=== PATIENT | female | born 1950 | race Caucasian/White ===

== ENCOUNTER 2017-11-18 09:59 | Observation (INO) | payer MEDICARE, OTHER ==
[2017-11-18] MEDS ORDERED: SODIUM CHLORIDE 0.9% 1,000 ML IV STA (10:40)
[2017-11-18] MEDS ORDERED: SODIUM CHLORIDE 0.9% 2,000 ML IV STA (10:40)
[2017-11-18] MEDS ORDERED: ONDANSETRON 4 MG/2 ML VIAL IVP STA (10:40)
--- NOTE | 2017-11-18 11:18 | ED ---
General Adult HPI <Keven Bagley J - Last Filed: 11/18/17 15:13> - General Source: patient, RN notes reviewed, old records reviewed Mode of arrival: wheelchair Limitations: no limitations <Velvet Saeed - Last Filed: 11/18/17 15:30> - General Chief complaint: Nausea/Vomiting/Diarrhea Stated complaint: Dx C-diff Time Seen by Provider: 11/18/17 10:21 - History of Present Illness Initial comments: Is a 67-year-old female presents emergency Department chief complaint of increased weakness. She is diagnosed with C. diff diarrhea and was recently admitted and discharged from [facility]. She reports that she is too weak and is unable to stand. She's had multiple episodes of severe diarrhea. Patient relates that she felt that she should not have been discharged from that hospital that time. She is very upset with her physician Dr. langford. Patient states that she's had some diffuse abdominal pain related with the diarrhea. No vomiting. No fevers or chills. (Velvet Saeed) - Related Data Home Medications Medication Instructions Recorded Confirmed Cholestyramine (with Sugar) 4 gm PO BID PRN 11/18/17 11/18/17 [Cholestyramine Packet] Escitalopram [Lexapro] 10 mg PO DAILY 11/18/17 11/18/17 LORazepam [Ativan] 1 mg PO DAILY PRN 11/18/17 11/18/17 Lisinopril [Zestril] 20 mg PO DAILY 11/18/17 11/18/17 Morphine Sulfate ER [Ms Contin 60 mg PO Q12HR 11/18/17 11/18/17 60Mg] Morphine Sulfate Ir [Msir] 15 mg PO BID 11/18/17 11/18/17 Multivitamins, Thera [Multivitamin 1 tab PO DAILY 11/18/17 11/18/17 (formulary)] Omeprazole 20 mg PO DAILY 11/18/17 11/18/17 Ondansetron [Zofran] 4 mg PO Q8HR PRN 11/18/17 11/18/17 Vancomycin HCl [Vancocin HCl] 250 mg PO Q6H 11/18/17 11/18/17 clonazePAM [KlonoPIN] 1 mg PO HS 11/18/17 11/18/17 Allergies Allergy/AdvReac Type Severity Reaction Status Date / Time Antifungal - Imidazole AdvReac Unknown Verified 11/18/17 10:53 erythromycin base AdvReac Unknown Verified 11/18/17 10:53 peanut AdvReac Unknown Verified 11/18/17 10:53 tomato AdvReac Unknown Verified 11/18/17 10:53 RASBERRIES AdvReac Unknown Uncoded 11/18/17 10:53 Review of Systems ROS Other: All systems not noted in ROS Statement are negative. <Keven Bagley - Last Filed: 11/18/17 15:13> ROS Other: All systems not noted in ROS Statement are negative. <DarlinVelvet - Last Filed: 11/18/17 15:30> ROS Statement: Those systems with pertinent positive or pertinent negative responses have been documented in the HPI. Past Medical History Past Medical History: Hyperlipidemia, Hypertension Additional Past Medical History / Comment(s): Stage III kidney disease, low potassium r/t diarrhea History of Any Multi-Drug Resistant Organisms: C-DIFF Date of last positivie culture/infection: C-Diff in November 2017 Past Surgical History: Back Surgery, Hysterectomy, Orthopedic Surgery, Tonsillectomy Past Psychological History: Anxiety Smoking Status: Current some day smoker Past Alcohol Use History: None Reported Past Drug Use History: Marijuana <Velvet Saeed - Last Filed: 11/18/17 15:30> General Exam <Keven Bagley - Last Filed: 11/18/17 15:13> Limitations: no limitations General appearance: alert, in no apparent distress Head exam: Present: atraumatic, normocephalic, normal inspection Eye exam: Present: normal appearance, PERRL, EOMI. Absent: scleral icterus, conjunctival injection, periorbital swelling ENT exam: Present: normal exam, mucous membranes moist Neck exam: Present: normal inspection. Absent: tenderness, meningismus, lymphadenopathy Respiratory exam: Present: normal lung sounds bilaterally. Absent: respiratory distress, wheezes, rales, rhonchi, stridor Cardiovascular Exam: Present: regular rate, normal rhythm, normal heart sounds. Absent: systolic murmur, diastolic murmur, rubs, gallop, clicks GI/Abdominal exam: Present: soft, tenderness (Left upper quadrant tenderness.), normal bowel sounds. Absent: distended, guarding, rebound, rigid Extremities exam: Present: normal inspection, full ROM, normal capillary refill. Absent: tenderness, pedal edema, joint swelling, calf tenderness Back exam: Present: normal inspection Neurological exam: Present: alert, oriented X3, CN II-XII intact Psychiatric exam: Present: normal affect, normal mood Skin exam: Present: warm, dry, intact, normal color. Absent: rash <Hailee Saeedily - Last Filed: 11/18/17 15:30> - General Exam Comments Initial Comments: This is 67-year-old female. Very weak. It took 2 people to get her from the wheelchair to the bed. (Velvet Saeed) Vital Signs 11/18/17 10:00 Temperature 98.2 F Pulse Rate 101 H Respiratory 20 Rate Blood Pressure 160/80 O2 Sat by Pulse 98 Oximetry Medical Decision Making - Lab Data Result diagrams: 11/18/17 11:55 11/18/17 11:55 <Keven Bagley - Last Filed: 11/18/17 15:13> - Lab Data Result diagrams: 11/18/17 11:55 11/18/17 11:55 - Radiology Data Radiology results: report reviewed <Velvet Saeed - Last Filed: 11/18/17 15:30> - Medical Decision Making The patient was seen and examined. All diagnostics were reviewed. The case is discussed with Dr. Umaña from internal medicine and he is agreeable to admission. The case is discussed with PA and I agree with the findings as documented. (Keven Bagley) 67-year-old female recently diagnosed with C. diff diarrhea. She's been maintained on oral vancomycin. She reports she's not getting any better and is severely weak and dehydrated. Patient relates that she is unable to ambulate due to the weakness in her legs and just severe diarrhea. Patient denies any known fever or chills. Does complain of some left upper quadrant tenderness. She is given 2 L of fluids and lab work was obtained. Patient has had multiple episodes of diarrhea. Patient C. diff is actually negative in the emergency department. However clinically patient has had severe green foul-smelling diarrhea consistent with C. diff. Case discussed with by Dr. Bagley. (Velvet Saeed) - Lab Data Lab Results 11/18/17 11/18/17 11/18/17 Range/Units 11:55 11:55 11:55 WBC 11.7 H (3.8-10.6) k/uL RBC 5.29 (3.80-5.40) m/uL Hgb 14.9 (11.4-16.0) gm/dL Hct 45.3 (34.0-46.0) % MCV 85.6 (80.0-100.0) fL MCH 28.1 (25.0-35.0) pg MCHC 32.8 (31.0-37.0) g/dL RDW 14.3 (11.5-15.5) % Plt Count 289 (150-450) k/uL Neutrophils % 74 % Lymphocytes % 18 % Monocytes % 5 % Eosinophils % 1 % Basophils % 0 % Neutrophils # 8.6 H (1.3-7.7) k/uL Lymphocytes # 2.1 (1.0-4.8) k/uL Monocytes # 0.5 (0-1.0) k/uL Eosinophils # 0.2 (0-0.7) k/uL Basophils # 0.1 (0-0.2) k/uL Sodium 140 (137-145) mmol/L Potassium 4.2 (3.5-5.1) mmol/L Chloride 101 (98-107) mmol/L Carbon Dioxide 24 (22-30) mmol/L Anion Gap 15 mmol/L BUN 5 L (7-17) mg/dL Creatinine 0.90 (0.52-1.04) mg/dL Est GFR (CKD-EPI)AfAm 77 (>60 ml/min/1.73 sqM) Est GFR (CKD-EPI)NonAf 67 (>60 ml/min/1.73 sqM) Glucose 89 (74-99) mg/dL Plasma Lactic Acid Eriberto 0.8 (0.7-2.0) mmol/L Calcium 9.9 (8.4-10.2) mg/dL Total Bilirubin 0.6 (0.2-1.3) mg/dL AST 25 (14-36) U/L ALT 35 (9-52) U/L Alkaline Phosphatase 74 (38-126) U/L Total Protein 6.2 L (6.3-8.2) g/dL Albumin 3.7 (3.5-5.0) g/dL Amylase 31 (30-110) U/L Lipase 57 (23-300) U/L Urine Color Urine Appearance (Clear) Urine pH (5.0-8.0) Ur Specific Towner (1.001-1.035) Urine Protein (Negative) Urine Glucose (UA) (Negative) Urine Ketones (Negative) Urine Blood (Negative) Urine Nitrite (Negative) Urine Bilirubin (Negative) Urine Urobilinogen (<2.0) mg/dL Ur Leukocyte Esterase (Negative) C. difficile (EIA) Intrp (Negative) 11/18/17 11/18/17 Range/Units 11:55 12:15 WBC (3.8-10.6) k/uL RBC (3.80-5.40) m/uL Hgb (11.4-16.0) gm/dL Hct (34.0-46.0) % MCV (80.0-100.0) fL MCH (25.0-35.0) pg MCHC (31.0-37.0) g/dL RDW (11.5-15.5) % Plt Count (150-450) k/uL Neutrophils % % Lymphocytes % % Monocytes % % Eosinophils % % Basophils % % Neutrophils # (1.3-7.7) k/uL Lymphocytes # (1.0-4.8) k/uL Monocytes # (0-1.0) k/uL Eosinophils # (0-0.7) k/uL Basophils # (0-0.2) k/uL Sodium (137-145) mmol/L Potassium (3.5-5.1) mmol/L Chloride (98-107) mmol/L Carbon Dioxide (22-30) mmol/L Anion Gap mmol/L BUN (7-17) mg/dL Creatinine (0.52-1.04) mg/dL Est GFR (CKD-EPI)AfAm (>60 ml/min/1.73 sqM) Est GFR (CKD-EPI)NonAf (>60 ml/min/1.73 sqM) Glucose (74-99) mg/dL Plasma Lactic Acid Eriberto (0.7-2.0) mmol/L Calcium (8.4-10.2) mg/dL Total Bilirubin (0.2-1.3) mg/dL AST (14-36) U/L ALT (9-52) U/L Alkaline Phosphatase (38-126) U/L Total Protein (6.3-8.2) g/dL Albumin (3.5-5.0) g/dL Amylase (30-110) U/L Lipase (23-300) U/L Urine Color Light Yellow Urine Appearance Clear (Clear) Urine pH 6.0 (5.0-8.0) Ur Specific Towner 1.002 (1.001-1.035) Urine Protein Trace H (Negative) Urine Glucose (UA) Negative (Negative) Urine Ketones 2+ H (Negative) Urine Blood Negative (Negative) Urine Nitrite Negative (Negative) Urine Bilirubin Negative (Negative) Urine Urobilinogen <2.0 (<2.0) mg/dL Ur Leukocyte Esterase Negative (Negative) C. difficile (EIA) Intrp Negative (Negative) - Radiology Data KUB is negative for any acute process. (Velvet Saeed) Disposition <Keven Bagley - Last Filed: 11/18/17 15:13> Time of Disposition: 14:27 <Velvet Saeed - Last Filed: 11/18/17 15:30> Clinical Impression: Intractable diarrhea, Clostridium difficile colitis Disposition: ADMITTED IP TO THIS HOSP Condition: Stable Referrals: Alo Robins MD [Primary Care Provider] - 1-2 days
[2017-11-18 12:09] LABS: Basophils # (A) 0.1 k/uL (0-0.2); Basophils % (A) 0 %; Eosinophils # (A) 0.2 k/uL (0-0.7); Eosinophils % (A) 1 %; HCT 45.3 % (34.0-46.0); HGB 14.9 gm/dL (11.4-16.0); Lymphocytes # (A) 2.1 k/uL (1.0-4.8); Lymphocytes % (A) 18 %; MCH 28.1 pg (25.0-35.0); MCHC 32.8 g/dL (31.0-37.0); MCV 85.6 fL (80.0-100.0); Mean Platelet Volume 8.1; Monocytes # (A) 0.5 k/uL (0-1.0); Monocytes % (A) 5 %; Neutrophils # (A) 8.6 k/uL (1.3-7.7); Neutrophils % (A) 74 %; Platelet Count 289 k/uL (150-450); RBC 5.29 m/uL (3.80-5.40); RDW 14.3 % (11.5-15.5); WBC 11.7 k/uL (3.8-10.6)
[2017-11-18 12:17] LABS: Albumin 3.7 g/dL (3.5-5.0); Calcium 9.9 mg/dL (8.4-10.2); Potassium 4.2 mmol/L (3.5-5.1); Total Bilirubin 0.6 mg/dL (0.2-1.3); Total Protein 6.2 g/dL (6.3-8.2)
[2017-11-18 12:18] LABS: Appearance,Urine Clear (Clear); Bilirubin,Urine Negative (Negative); Blood,Urine Negative (Negative); Color,Urine Light Yellow; Glucose,Urine (UA) Negative (Negative); Ketones,Urine 2+ (Negative); Leukocyte Esterase,Urine Negative (Negative); Nitrite,Urine Negative (Negative); Protein,Urine Trace (Negative); Specific Gravity,Urine 1.002 (1.001-1.035); Urobilinogen,Urine <2.0 mg/dL (<2.0)
--- NOTE | 2017-11-18 12:33 | XR ---
EXAMINATION TYPE: XR KUB DATE OF EXAM: 11/18/2017 COMPARISON: NONE HISTORY: Pain TECHNIQUE: Single supine KUB image of the abdomen is obtained FINDINGS: Small bowel demonstrates no evidence for dilatation or air fluid levels. Gas and fecal material is seen in non-distended colon. No convincing evidence for pneumoperitoneum. No unusual calcifications. The lung bases are clear. The osseous structures are intact. IMPRESSION: 1. Overall nonobstructive bowel gas pattern.
[2017-11-18] MEDS ORDERED: MORPHINE SULFATE 4MG/4ML SYRG IVP STA (13:58)
[2017-11-18] MEDS ORDERED: NALOXONE 0.4 MG/ML 1 ML VIAL IV PRN (15:30)
[2017-11-18] MEDS ORDERED: MORPHINE SULFATE 4MG/4ML SYRG IV PRN (15:30)
[2017-11-18] MEDS ORDERED: KETOROLAC 30 MG/ML 1 ML VIAL IVP PRN (15:30)
[2017-11-18] MEDS ORDERED: ONDANSETRON 4 MG/2 ML VIAL IVP PRN (15:30)
[2017-11-18] MEDS ORDERED: LORazepam 1 MG TAB PO PRN (17:24)
[2017-11-18] MEDS ORDERED: CHOLESTYRAMINE (WITH SUGAR) 4 GM PACKET PO PRN (17:24)
[2017-11-18] MEDS: SODIUM CHLORIDE 0.9% 1,000 ML IV SCH ×2 (18:12→21:29)
[2017-11-18] MEDS: CHERRY FLAVOR 60 ML BOTTLE PO SCH ×2 (18:50→23:24)
[2017-11-18] MEDS: VANCOMYCIN ORAL SOLUTION 250 MG/5 ML BOTTLE PO SCH ×2 (18:50→23:23)
[2017-11-18] MEDS: MORPHINE SULFATE ER 60 MG TABLET PO SCH (21:23)
[2017-11-18] MEDS: clonazePAM 1 MG TAB PO SCH (21:23)
[2017-11-18] MEDS: MORPHINE SULFATE IR 15 MG TABLET PO SCH (21:28)
--- NOTE | 2017-11-19 01:20 | P.HPIM ---
History of Present Illness H&P Date: 11/18/17 Chief Complaint: Weakness and diarrhea Patient is a 67 old female with a known history of hypertension, hyperlipidemia , CK stage III and recently diagnosed C. diff infection at [facility] came to ER with complaints of increasing weakness and diarrhea. Patient was diagnosed with C. diff colitis about 5 days ago and was discharged home. Patient continues to be weak and having diarrhea at home and unable to tolerate oral diet as well. Came back to the hospital with generalized weakness. Patient has been taking vancomycin oral at home. Patient was also having some diffuse abdominal pain. No fever no chills. Patient does have nausea. No vomiting. C. diff toxin is negative here Stool occult blood is negative. Stool culture was sent. Review of Systems Constitutional: Patient denies any fever or chills . No generalized weakness or weight loss. Abdomen: Patient does have abdominal discomfort and nausea and diarrhea. Cardiovascular: Patient denies any chest pain or short of breath no palpitations. Respiratory: patient denied any cough is from production. No shortness of breath Neurologic: Patient denied any numbness or tingling headache. Musculoskeletal: Patient denies any complaints of joint swelling or deformity. Skin: Negative Psychiatric: Negative Endocrine: No heat or cold intolerance. No recent weight gain. Genitourinary: No dysuria or hematuria. All other 14 point ROS negative except the above Past Medical History Past Medical History: Hyperlipidemia, Hypertension Additional Past Medical History / Comment(s): Stage III kidney disease, low potassium r/t diarrhea History of Any Multi-Drug Resistant Organisms: C-DIFF Date of last positivie culture/infection: C-Diff in November 2017 MDRO Source:: stool Past Surgical History: Back Surgery, Hysterectomy, Orthopedic Surgery, Tonsillectomy Past Psychological History: Anxiety Additional Psychological History / Comment(s): trouble sleeping Smoking Status: Former smoker Past Alcohol Use History: None Reported Past Drug Use History: Marijuana Additional Drug Use History / Comment(s): pt has current medical marijuana card "I don't smoke. I do the gummy edibles" - Past Family History Father Family Medical History: Cancer Additional Family Medical History / Comment(s): from lymphoma Medications and Allergies Home Medications Medication Instructions Recorded Confirmed Type Cholestyramine (with Sugar) 4 gm PO BID PRN 11/18/17 11/18/17 History [Cholestyramine Packet] Escitalopram [Lexapro] 10 mg PO DAILY 11/18/17 11/18/17 History LORazepam [Ativan] 1 mg PO DAILY PRN 11/18/17 11/18/17 History Lisinopril [Zestril] 20 mg PO DAILY 11/18/17 11/18/17 History Morphine Sulfate ER [Ms Contin 60 mg PO Q12HR 11/18/17 11/18/17 History 60Mg] Morphine Sulfate Ir [Msir] 15 mg PO BID 11/18/17 11/18/17 History Multivitamins, Thera [Multivitamin 1 tab PO DAILY 11/18/17 11/18/17 History (formulary)] Omeprazole 20 mg PO DAILY 11/18/17 11/18/17 History Ondansetron [Zofran] 4 mg PO Q8HR PRN 11/18/17 11/18/17 History Vancomycin HCl [Vancocin HCl] 250 mg PO Q6H 11/18/17 11/18/17 History clonazePAM [KlonoPIN] 1 mg PO HS 11/18/17 11/18/17 History Allergies Allergy/AdvReac Type Severity Reaction Status Date / Time Antifungal - Imidazole AdvReac Rash/Hives Verified 11/18/17 17:07 erythromycin base AdvReac Rash/Hives Verified 11/18/17 17:07 peanut AdvReac Anaphylaxis Verified 11/18/17 17:07 tomato AdvReac Anaphylaxis Verified 11/18/17 17:07 tuna oil AdvReac Rash/Hives Verified 11/18/17 17:07 RASBERRIES AdvReac Anaphylaxis Uncoded 11/18/17 17:07 Physical Exam Vitals: Vital Signs Temp Pulse Pulse Resp BP BP Pulse Ox 11/18/17 16:19 70 18 95 11/18/17 15:54 98.2 F 64 16 159/75 93 L 11/18/17 15:33 96.3 F L 67 12 139/69 91 L 11/18/17 10:00 98.2 F 101 H 20 160/80 98 Intake and Output 11/18/17 11/18/17 11/18/17 06:59 14:59 22:59 Other: Weight 68.039 kg PHYSICAL EXAMINATION: Patient is lying in the bed comfortably, no acute distress, awake alert and oriented. Anxious. HEENT: Normocephalic. Neck is supple. Pupils reactive. Nostrils clear. Oral cavity is moist. Ears reveal no drainage. Neck reveals no JVD, carotid bruits, or thyromegaly. CHEST EXAMINATION: Trachea is central. Symmetrical expansion. Lung conti clear to auscultation and percussion. CARDIAC: Normal S1, S2 with no gallops. No murmurs ABDOMEN: Soft. Bowel sounds normal. No organomegaly. No abdominal bruits. Extremities: reveal no edema. No clubbing or cyanosis Neurologically awake, alert, oriented x3 with well-coordinated movements. No focal deficits noted Skin: No rash or skin lesions. Psychiatric: Coperative. Nonsuicidal Musculoskeletal: No joint swelling or deformity. Normal range of motion. Results CBC & Chem 7: 11/18/17 11:55 11/18/17 11:55 Labs: Abnormal Lab Results - Last 24 Hours (Table) 11/18/17 11/18/17 11/18/17 Range/Units 11:55 11:55 11:55 WBC 11.7 H (3.8-10.6) k/uL Neutrophils # 8.6 H (1.3-7.7) k/uL BUN 5 L (7-17) mg/dL Total Protein 6.2 L (6.3-8.2) g/dL Urine Protein Trace H (Negative) Urine Ketones 2+ H (Negative) Thrombosis Risk Factor Assmnt - DVT/VTE Prophylaxis DVT/VTE Prophylaxis: Pharmacologic Prophylaxis ordered - Choose All That Apply Any of the Below Risk Factors Present?: No Assessment and Plan Assessment: Acute C. diff infection diagnosed about [address] [facility]. Abdominal discomfort and diarrhea secondary to above Hypertension Hyperlipidemia Medical marijuana use Anxiety DVT prophylaxis Plan: Patient will be continued on IV fluids and started back on vancomycin. Patient was started back on pain medications and follow up closely. Repeat C. diff toxin was negative. Stool culture and studies were sent. Further recommendations based on the clinical course. Time with Patient: Greater than 30
[2017-11-19] MEDS: CHERRY FLAVOR 60 ML BOTTLE PO SCH ×3 (05:32→18:27)
[2017-11-19] MEDS: VANCOMYCIN ORAL SOLUTION 250 MG/5 ML BOTTLE PO SCH ×3 (05:33→18:27)
[2017-11-19] MEDS: HEPARIN SODIUM,PORCINE 5,000 UNIT/ML 1 ML VIAL SQ SCH ×2 (08:15→16:08)
[2017-11-19] MEDS: MORPHINE SULFATE ER 60 MG TABLET PO SCH ×2 (08:15→21:14)
[2017-11-19] MEDS: MORPHINE SULFATE IR 15 MG TABLET PO SCH ×2 (08:16→21:14)
[2017-11-19] MEDS: SODIUM CHLORIDE 0.9% 1,000 ML IV SCH ×2 (08:56→17:58)
[2017-11-19] MEDS: PANTOPRAZOLE 40 MG/10 ML VIAL IV SCH (09:03)
[2017-11-19 09:20] LABS: Basophils % (A) 1 %; Eosinophils # (A) 0.3 k/uL (0-0.7); Eosinophils % (A) 4 %; HCT 37.8 % (34.0-46.0); HGB 12.6 gm/dL (11.4-16.0); Lymphocytes # (A) 2.1 k/uL (1.0-4.8); Lymphocytes % (A) 26 %; MCH 28.9 pg (25.0-35.0); MCHC 33.4 g/dL (31.0-37.0); MCV 86.5 fL (80.0-100.0); Mean Platelet Volume 7.2; Monocytes # (A) 0.5 k/uL (0-1.0); Monocytes % (A) 6 %; Neutrophils # (A) 4.8 k/uL (1.3-7.7); Neutrophils % (A) 61 %; Platelet Count 236 k/uL (150-450); RBC 4.37 m/uL (3.80-5.40); RDW 14.2 % (11.5-15.5); WBC 7.9 k/uL (3.8-10.6)
[2017-11-19 09:44] LABS: Calcium 8.7 mg/dL (8.4-10.2); Potassium 3.4 mmol/L (3.5-5.1)
[2017-11-19] MEDS: POTASSIUM CHLORIDE ER 20 MEQ TAB.ER PO SCH ×2 (11:30→12:52)
[2017-11-19] MEDS ORDERED: Magnesium Replacement Protocol 1 EACH MISC MISCELLANE PRN (12:47)
[2017-11-19] MEDS ORDERED: FLUCONAZOLE 150 MG TAB PO STA (12:52)
[2017-11-19 13:41] VITALS: BMI 25.0
[2017-11-19 14:54] VITALS: RESP 18
[2017-11-19] MEDS ORDERED: MORPHINE ORAL SOLN 10 MG/5 ML CUP PO PRN (19:37)
[2017-11-19] MEDS: clonazePAM 1 MG TAB PO SCH (21:14)
--- NOTE | 2017-11-19 23:55 | P.PN ---
Subjective Progress Note Date: 11/19/17 Principal diagnosis: Diarrhea with recent C. diff infection about 5 days back at outside hospital facility Patient is a 67 old female with a known history of hypertension, hyperlipidemia , CK stage III and recently diagnosed C. diff infection at [facility] came to ER with complaints of increasing weakness and diarrhea. Patient was diagnosed with C. diff colitis about 5 days ago and was discharged home. Patient continues to be weak and having diarrhea at home and unable to tolerate oral diet as well. Came back to the hospital with generalized weakness. Patient has been taking vancomycin oral at home. Patient was also having some diffuse abdominal pain. No fever no chills. Patient does have nausea. No vomiting. C. diff toxin is negative here Stool occult blood is negative. Stool culture was sent. 11/19/2017 Patient says that her diarrhea is better today more semisolid and otherwise weakness is improving as well. Patient is being continued on oral vancomycin. Possible discharge tomorrow with more clinical improvement in diarrhea. No fever no chills. All other review of systems negative except the above Active Medications Generic Name Dose Route Start Last Admin Trade Name Freq PRN Reason Stop Dose Admin Cisse Syrup 5 ml 11/18/17 18:00 11/19/17 18:27 Cisse Syrup PO 5 ml Q6HR MARIELY Administration Cholestyramine Resin 4 gm 11/18/17 17:24 Questran PO BID PRN Diarrhea Clonazepam 1 mg 11/18/17 21:00 11/19/17 21:14 Klonopin PO 1 mg HS MARIELY Administration Heparin Sodium (Porcine) 5,000 unit 11/19/17 08:00 11/19/17 16:08 Heparin SQ 5,000 unit Q8HR MARIELY Administration Sodium Chloride 1,000 mls @ 120 mls/hr 11/18/17 15:30 11/19/17 17:58 Saline 0.9% IV Not Given .Q8H20M MARIELY Ketorolac Tromethamine 30 mg 11/18/17 15:30 Toradol IVP 11/23/17 15:31 Q6HR PRN Moderate Pain Lorazepam 1 mg 11/18/17 17:24 Ativan PO DAILY PRN Anxiety Miscellaneous Information 1 each 11/19/17 12:47 Magnesium Per Protocol MISCELLANE DAILY PRN Per Protocol Protocol Morphine Sulfate 60 mg 11/18/17 21:00 11/19/17 21:14 Ms Contin PO 60 mg Q12HR MARIELY Administration Morphine Sulfate 15 mg 11/18/17 21:00 11/19/17 21:14 Msir PO 15 mg BID MARIELY Administration Morphine Sulfate 12 mg 11/19/17 19:37 Morphine Oral Nelly 2mg/Ml PO Q4HR PRN Severe Pain Naloxone HCl 0.2 mg 11/18/17 15:30 Narcan IV Q2M PRN Opioid Reversal Ondansetron HCl 4 mg 11/18/17 15:30 11/19/17 15:48 Zofran IVP 4 mg Q8HR PRN Administration Nausea And Vomiting Pantoprazole Sodium 40 mg 11/19/17 09:00 11/19/17 09:03 Protonix IV 40 mg DAILY MARIELY Administration Vancomycin HCl 250 mg 11/18/17 18:00 11/19/17 18:27 Vancomycin Oral Solution PO 11/21/17 18:59 250 mg Q6HR MARIELY Administration Objective - Vital Signs Vital signs: Vital Signs Temp 97.6 F 11/19/17 14:43 Pulse 67 11/19/17 14:43 Resp 18 11/19/17 16:00 BP 117/62 11/19/17 14:43 Pulse Ox 95 11/19/17 14:50 Intake & Output 11/18/17 11/19/17 11/19/17 18:59 06:59 18:59 Weight 68.039 kg 68.039 kg Other: Voiding Method Bedside Commode # Voids 1 1 # Bowel Movements 1 1 - Exam PHYSICAL EXAMINATION: Patient is lying in the bed comfortably, no acute distress, awake alert and oriented.. HEENT: Normocephalic. Neck is supple. Pupils reactive. Nostrils clear. Oral cavity is moist. Ears reveal no drainage. Neck reveals no JVD, carotid bruits, or thyromegaly. CHEST EXAMINATION: Trachea is central. Symmetrical expansion. Lung conti clear to auscultation and percussion. CARDIAC: Normal S1, S2 with no gallops. No murmurs ABDOMEN: Soft. Bowel sounds normal. No organomegaly. No abdominal bruits. Extremities: reveal no edema. No clubbing or cyanosis Neurologically awake, alert, oriented x3 with well-coordinated movements. No focal deficits noted Skin: No rash or skin lesions. Psychiatric: Coperative. Nonsuicidal Musculoskeletal: No joint swelling or deformity. Normal range of motion. - Labs CBC & Chem 7: 11/19/17 08:59 11/19/17 13:38 Labs: Abnormal Lab Results - Last 24 Hours (Table) 11/19/17 Range/Units 08:59 Potassium 3.4 L (3.5-5.1) mmol/L BUN 3 L (7-17) mg/dL Microbiology - Last 24 Hours (Table) 11/18/17 11:55 Blood Culture - Preliminary Blood No Growth after 24 hours 11/18/17 12:15 Stool for WBCs - Final Stool 11/18/17 12:15 Stool Culture - Preliminary Stool Assessment and Plan Assessment: Acute C. diff infection diagnosed about 5 days back at [facility]. Still having Diarrhea but improving Abdominal discomfort and diarrhea secondary to above Hypertension Hyperlipidemia Medical marijuana use Anxiety Hypokalemia DVT prophylaxis Plan: Patient will be continued on IV fluids and started back on oral vancomycin. Patient was started back on pain medications and follow up closely. Repeat C. diff toxin was negative. Stool culture and studies were sent. Further recommendations based on the clinical course. Time with Patient: Greater than 30
[2017-11-20] MEDS: VANCOMYCIN ORAL SOLUTION 250 MG/5 ML BOTTLE PO SCH ×5 (00:04→23:41)
[2017-11-20] MEDS: HEPARIN SODIUM,PORCINE 5,000 UNIT/ML 1 ML VIAL SQ SCH ×4 (00:04→23:40)
[2017-11-20] MEDS: CHERRY FLAVOR 60 ML BOTTLE PO SCH ×5 (00:04→23:40)
[2017-11-20] MEDS: SODIUM CHLORIDE 0.9% 1,000 ML IV SCH ×4 (00:10→23:46)
[2017-11-20] MEDS: PANTOPRAZOLE 40 MG/10 ML VIAL IV SCH (09:05)
[2017-11-20] MEDS: MORPHINE SULFATE ER 60 MG TABLET PO SCH ×2 (09:05→20:25)
[2017-11-20] MEDS: MORPHINE SULFATE IR 15 MG TABLET PO SCH ×2 (09:05→20:26)
[2017-11-20] MEDS: clonazePAM 1 MG TAB PO SCH (20:26)
[2017-11-20] MEDS: OXYBUTYNIN CHLORIDE 5 MG TAB PO SCH (20:26)
--- NOTE | 2017-11-20 23:44 | P.PN ---
Subjective Progress Note Date: 11/20/17 Principal diagnosis: Diarrhea with recent C. diff infection about 5 days back at outside hospital facility Patient is a 67 old female with a known history of hypertension, hyperlipidemia , CK stage III and recently diagnosed C. diff infection at [facility] came to ER with complaints of increasing weakness and diarrhea. Patient was diagnosed with C. diff colitis about 5 days ago and was discharged home. Patient continues to be weak and having diarrhea at home and unable to tolerate oral diet as well. Came back to the hospital with generalized weakness. Patient has been taking vancomycin oral at home. Patient was also having some diffuse abdominal pain. No fever no chills. Patient does have nausea. No vomiting. C. diff toxin is negative here Stool occult blood is negative. Stool culture was sent. 11/19/2017 Patient says that her diarrhea is better today more semisolid and otherwise weakness is improving as well. Patient is being continued on oral vancomycin. Possible discharge tomorrow with more clinical improvement in diarrhea. No fever no chills. 11 20 2017 Patient is still having diarrhea today. Otherwise complaining of swelling of the feet. No nausea vomiting or abdominal pain. Otherwise feels very weak. No acute overnight issues. Anticipate 2 be discharged tomorrow. All other review of systems negative except the above Active Medications Generic Name Dose Route Start Last Admin Trade Name Freq PRN Reason Stop Dose Admin Cisse Syrup 5 ml 11/18/17 18:00 11/19/17 18:27 Cisse Syrup PO 5 ml Q6HR MARIELY Administration Cholestyramine Resin 4 gm 11/18/17 17:24 Questran PO BID PRN Diarrhea Clonazepam 1 mg 11/18/17 21:00 11/19/17 21:14 Klonopin PO 1 mg HS MARIELY Administration Heparin Sodium (Porcine) 5,000 unit 11/19/17 08:00 11/19/17 16:08 Heparin SQ 5,000 unit Q8HR MARIELY Administration Sodium Chloride 1,000 mls @ 120 mls/hr 11/18/17 15:30 11/19/17 17:58 Saline 0.9% IV Not Given .Q8H20M MARIELY Ketorolac Tromethamine 30 mg 11/18/17 15:30 Toradol IVP 11/23/17 15:31 Q6HR PRN Moderate Pain Lorazepam 1 mg 11/18/17 17:24 Ativan PO DAILY PRN Anxiety Miscellaneous Information 1 each 11/19/17 12:47 Magnesium Per Protocol MISCELLANE DAILY PRN Per Protocol Protocol Morphine Sulfate 60 mg 11/18/17 21:00 11/19/17 21:14 Ms Contin PO 60 mg Q12HR MARIELY Administration Morphine Sulfate 15 mg 11/18/17 21:00 11/19/17 21:14 Msir PO 15 mg BID MARIELY Administration Morphine Sulfate 12 mg 11/19/17 19:37 Morphine Oral Nelly 2mg/Ml PO Q4HR PRN Severe Pain Naloxone HCl 0.2 mg 11/18/17 15:30 Narcan IV Q2M PRN Opioid Reversal Ondansetron HCl 4 mg 11/18/17 15:30 11/19/17 15:48 Zofran IVP 4 mg Q8HR PRN Administration Nausea And Vomiting Pantoprazole Sodium 40 mg 11/19/17 09:00 11/19/17 09:03 Protonix IV 40 mg DAILY MARIELY Administration Vancomycin HCl 250 mg 11/18/17 18:00 11/19/17 18:27 Vancomycin Oral Solution PO 11/21/17 18:59 250 mg Q6HR MARIELY Administration Objective - Vital Signs Vital signs: Vital Signs Temp 97.6 F 11/20/17 14:23 Pulse 69 11/20/17 14:23 Resp 18 11/20/17 14:23 BP 128/70 11/20/17 14:23 Pulse Ox 92 L 11/20/17 14:30 Intake & Output 11/19/17 11/20/17 11/20/17 18:59 06:59 18:59 Intake Total 850 Balance 850 Weight 68.039 kg 68.039 kg Intake: Oral 850 Other: Voiding Method Bedside Commode Bedside Commode # Voids 1 2 2 # Bowel Movements 1 1 - Exam PHYSICAL EXAMINATION: Patient is lying in the bed comfortably, no acute distress, awake alert and oriented.. HEENT: Normocephalic. Neck is supple. Pupils reactive. Nostrils clear. Oral cavity is moist. Ears reveal no drainage. Neck reveals no JVD, carotid bruits, or thyromegaly. CHEST EXAMINATION: Trachea is central. Symmetrical expansion. Lung conti clear to auscultation and percussion. CARDIAC: Normal S1, S2 with no gallops. No murmurs ABDOMEN: Soft. Bowel sounds normal. No organomegaly. No abdominal bruits. Extremities: reveal no edema. No clubbing or cyanosis Neurologically awake, alert, oriented x3 with well-coordinated movements. No focal deficits noted Skin: No rash or skin lesions. Psychiatric: Coperative. Nonsuicidal Musculoskeletal: No joint swelling or deformity. Normal range of motion. - Labs CBC & Chem 7: 11/19/17 08:59 11/19/17 13:38 Labs: Microbiology - Last 24 Hours (Table) 11/18/17 11:55 Blood Culture - Preliminary Blood No Growth after 48 hours Assessment and Plan Assessment: Acute C. diff infection diagnosed about 5 days back at [facility]. Still having Diarrhea but improving Abdominal discomfort and diarrhea secondary to above Hypertension Hyperlipidemia Medical marijuana use Chronic pain Anxiety Hypokalemia DVT prophylaxis Plan: Patient will be continued on IV fluids and started back on oral vancomycin. Patient was started back on pain medications and follow up closely. Repeat C. diff toxin was negative. Stool culture and studies were sent. Further recommendations based on the clinical course. Time with Patient: Greater than 30
[2017-11-21] MEDS: SODIUM CHLORIDE 0.9% 1,000 ML IV SCH ×2 (05:56→16:57)
[2017-11-21] MEDS: CHERRY FLAVOR 60 ML BOTTLE PO SCH ×3 (05:57→16:58)
[2017-11-21] MEDS: VANCOMYCIN ORAL SOLUTION 250 MG/5 ML BOTTLE PO SCH ×3 (05:57→16:58)
[2017-11-21] MEDS ORDERED: PANTOPRAZOLE 40 MG TABLET PO SCH (07:30)
[2017-11-21] MEDS: HEPARIN SODIUM,PORCINE 5,000 UNIT/ML 1 ML VIAL SQ SCH ×2 (07:52→15:54)
[2017-11-21] MEDS: OXYBUTYNIN CHLORIDE 5 MG TAB PO SCH (07:52)
[2017-11-21] MEDS: MORPHINE SULFATE ER 60 MG TABLET PO SCH (07:53)
[2017-11-21] MEDS: MORPHINE SULFATE IR 15 MG TABLET PO SCH (07:54)
[2017-11-21 08:19] LABS: Basophils # (A) 0.1 k/uL (0-0.2); Basophils % (A) 1 %; Eosinophils # (A) 0.3 k/uL (0-0.7); Eosinophils % (A) 5 %; HCT 38.9 % (34.0-46.0); HGB 12.2 gm/dL (11.4-16.0); Lymphocytes # (A) 2.4 k/uL (1.0-4.8); Lymphocytes % (A) 35 %; MCH 27.6 pg (25.0-35.0); MCHC 31.3 g/dL (31.0-37.0); MCV 88.3 fL (80.0-100.0); Monocytes # (A) 0.5 k/uL (0-1.0); Monocytes % (A) 7 %; Neutrophils # (A) 3.6 k/uL (1.3-7.7); Neutrophils % (A) 52 %; Platelet Count 223 k/uL (150-450); RBC 4.41 m/uL (3.80-5.40); RDW 14.6 % (11.5-15.5); WBC 6.9 k/uL (3.8-10.6)
[2017-11-21 08:41] LABS: Calcium 9.5 mg/dL (8.4-10.2); Potassium 4.1 mmol/L (3.5-5.1)
[2017-11-21] MEDS ORDERED: NYSTATIN 100,000 UNIT/GM OINT 30 GM TUBE TOPICAL PRN (10:41)
[2017-11-21 15:04] VITALS: BP 128/58; PULSE 66; TEMP 97.8
== END 2017-11-21 17:10 | disposition home or self-care (01) ==
LOC: EC 09:59 → 4MS4W 15:14 → INTOOBSV 15:14
PROVIDERS: ADMIT Internal Medicine; ATTEND Internal Medicine
DX: A04.72 Enterocolitis due to Clostridium difficile, not specified as recurrent (principal); E86.0 Dehydration; E87.6 Hypokalemia; I12.9 Hypertensive chronic kidney disease with stage 1 through stage 4 chronic kidney disease, or unspecified chronic kidney disease; N18.3 Chronic kidney disease, stage 3 (moderate); E78.5 Hyperlipidemia, unspecified; G89.29 Other chronic pain; F41.9 Anxiety disorder, unspecified; Z16.24 Resistance to multiple antibiotics; Z79.891 Long term (current) use of opiate analgesic; Z79.899 Other long term (current) drug therapy; Z88.1 Allergy status to other antibiotic agents; Z88.3 Allergy status to other anti-infective agents; Z91.010 Allergy to peanuts; Z91.018 Allergy to other foods; Z80.7 Family history of other malignant neoplasms of lymphoid, hematopoietic and related tissues
CPT/HCPCS: 99285 ×2; 96374 ×2; 96375 ×3; 96361 ×9; 96376 ×2; 96372 ×3; 36415; 94760; 80053; 80048 ×2; 82150; 83605; 83690; 83735; 84132; 85025 ×3; 82272; 81003; 87040; 87324; 87045; 89055; 87046; 74018; G0378 ×4; J1644 ×3; J2405 ×2; C9113 ×2; J2270

== ENCOUNTER 2019-10-07 10:53 | Inpatient (IN) | payer MEDICARE, OTHER ==
[2019-10-07] MEDS ORDERED: methylPREDNISolone SOD SUCCI 125 MG/2 ML VIAL IV STA (11:01)
[2019-10-07] MEDS ORDERED: IPRATROPIUM-ALBUTEROL 3 ML NEB INHALATION STA (11:01)
[2019-10-07] MEDS ORDERED: SODIUM CHLORIDE 0.9% 1,000 ML IV STA (11:01)
--- NOTE | 2019-10-07 11:06 | ED ---
Weakness HPI - General Stated complaint: WEAKNESS Time Seen by Provider: 10/07/19 10:53 Source: patient, EMS, RN notes reviewed Mode of arrival: EMS - History of Present Illness Initial comments: This is a 69-year-old female with a history of chronic pain who does use morphine and THC pill per the pain also is a smoker who presents by EMS with complaints of weakness lethargy she was noted have a 84% pulse ox on room air home. She has had some exertional dyspnea no overt fevers chills sweats she has had decreased oral intake minimal cough she states no rhinorrhea. No chest pain no focal weakness. MD Complaint: generalized weakness, lack of energy - Related Data Home Medications Medication Instructions Recorded Confirmed Morphine Sulfate ER [Ms Contin] 60 mg PO Q12HR 11/18/17 10/07/19 Morphine Sulfate Ir [MSIR] 15 mg PO BID 11/18/17 10/07/19 clonazePAM [KlonoPIN] 1 mg PO HS 11/18/17 10/07/19 Furosemide [Lasix] 20 mg PO DAILY PRN 10/07/19 10/07/19 Metoprolol Succinate [Toprol XL] 50 mg PO DAILY 10/07/19 10/07/19 Pregabalin [Lyrica] See Taper PO DIRECTED 10/07/19 10/07/19 Prochlorperazine [Compazine] 10 mg PO TID PRN 10/07/19 10/07/19 Rosuvastatin [Crestor] 10 mg PO DAILY 10/07/19 10/07/19 Allergies Allergy/AdvReac Type Severity Reaction Status Date / Time Antifungal - Imidazole AdvReac Rash/Hives Verified 10/07/19 11:56 erythromycin base AdvReac Rash/Hives Verified 10/07/19 11:56 peanut AdvReac Anaphylaxis Verified 10/07/19 11:56 tomato AdvReac Anaphylaxis Verified 10/07/19 11:56 tuna oil AdvReac Rash/Hives Verified 10/07/19 11:56 RASBERRIES AdvReac Anaphylaxis Uncoded 11/18/17 17:07 Review of Systems ROS Statement: Those systems with pertinent positive or pertinent negative responses have been documented in the HPI. ROS Other: All systems not noted in ROS Statement are negative. Past Medical History Past Medical History: Hyperlipidemia, Hypertension Additional Past Medical History / Comment(s): Stage III kidney disease, low potassium r/t diarrhea History of Any Multi-Drug Resistant Organisms: C-DIFF Date of last positivie culture/infection: C-Diff in November 2017 MDRO Source:: stool Past Surgical History: Back Surgery, Hysterectomy, Orthopedic Surgery, Tonsillectomy Past Psychological History: Anxiety Smoking Status: Current every day smoker Past Alcohol Use History: None Reported Past Drug Use History: Marijuana - Past Family History Father Family Medical History: Cancer Additional Family Medical History / Comment(s): from lymphoma General Exam - General Exam Comments Initial Comments: This is a well-developed well-nourished awake alert no lethargic female General appearance: alert, in no apparent distress Head exam: Present: atraumatic, normocephalic, normal inspection Eye exam: Present: normal appearance, PERRL, EOMI. Absent: scleral icterus, conjunctival injection, periorbital swelling ENT exam: Present: mucous membranes dry Neck exam: Present: normal inspection, full ROM, other (No stridor JVD or bruits). Absent: tenderness, meningismus, lymphadenopathy Respiratory exam: Present: rhonchi, decreased breath sounds. Absent: respiratory distress, wheezes, rales, stridor Cardiovascular Exam: Present: normal rhythm, tachycardia, normal heart sounds. Absent: systolic murmur, diastolic murmur, rubs, gallop, clicks GI/Abdominal exam: Present: soft, normal bowel sounds. Absent: distended, tenderness, guarding, rebound, rigid Extremities exam: Present: normal inspection, full ROM, normal capillary refill. Absent: tenderness, pedal edema, joint swelling, calf tenderness Back exam: Present: normal inspection Neurological exam: Present: alert, oriented X3, CN II-XII intact Psychiatric exam: Present: normal affect, normal mood Skin exam: Present: warm, dry, intact, normal color. Absent: rash Course Vital Signs 10/07/19 10/07/19 10/07/19 10:55 11:16 11:27 Temperature 99.1 F Pulse Rate 102 H 92 93 Respiratory 19 Rate Blood Pressure 168/90 O2 Sat by Pulse 70 L Oximetry - Reevaluation(s) Reevaluation #1: 10/07/19 12:39 Reevaluation patient reveals that she does feel improved after the initial nebulizer treatment. Her saturations are in the mid 90s at this time. EKG Findings - EKG Results: EKG: interpreted by MARIANELAD, sinus rhythm (Sinus tachycardia rate of 101. Interval 166 QRS duration 86 QT since QTC 346/[address]-T wave changes) Medical Decision Making - Medical Decision Making Reevaluation patient reveals no increase in her presenting symptoms. I did have a long discussion with her regarding the findings the patient does have evidence of any and STEMI as well as COPD exacerbation and pneumonia and evidence of CHF. She will be admitted I did discuss case with Dr. Godfrey. Cardiology as well as pulmonary mass will be consulted. - Lab Data Result diagrams: 10/07/19 11:10 10/07/19 11:10 Lab Results 10/07/19 10/07/19 10/07/19 Range/Units 11:10 11:10 11:10 WBC 18.7 H (3.8-10.6) k/uL RBC 5.35 (3.80-5.40) m/uL Hgb 15.3 (11.4-16.0) gm/dL Hct 47.2 H (34.0-46.0) % MCV 88.2 (80.0-100.0) fL MCH 28.6 (25.0-35.0) pg MCHC 32.5 (31.0-37.0) g/dL RDW 13.0 (11.5-15.5) % Plt Count 263 (150-450) k/uL Neutrophils % 90 % Lymphocytes % 7 % Monocytes % 3 % Eosinophils % 0 % Basophils % 0 % Neutrophils # 16.8 H (1.3-7.7) k/uL Lymphocytes # 1.3 (1.0-4.8) k/uL Monocytes # 0.5 (0-1.0) k/uL Eosinophils # 0.1 (0-0.7) k/uL Basophils # 0.0 (0-0.2) k/uL PT 10.2 (9.0-12.0) sec INR 1.0 (<1.2) APTT 23.2 (22.0-30.0) sec D-Dimer 0.65 H (<0.60) mg/L FEU Sodium 136 L (137-145) mmol/L Potassium 4.1 (3.5-5.1) mmol/L Chloride 103 (98-107) mmol/L Carbon Dioxide 27 (22-30) mmol/L Anion Gap 6 mmol/L BUN 23 H (7-17) mg/dL Creatinine 1.00 (0.52-1.04) mg/dL Est GFR (CKD-EPI)AfAm 67 (>60 ml/min/1.73 sqM) Est GFR (CKD-EPI)NonAf 58 (>60 ml/min/1.73 sqM) Glucose 131 H (74-99) mg/dL Plasma Lactic Acid Eriberto (0.7-2.0) mmol/L Calcium 9.5 (8.4-10.2) mg/dL Magnesium 2.0 (1.6-2.3) mg/dL Total Bilirubin 0.5 (0.2-1.3) mg/dL AST 24 (14-36) U/L ALT 10 (4-34) U/L Alkaline Phosphatase 109 (38-126) U/L Creatine Kinase 295 H (30-135) U/L Troponin I (0.000-0.034) ng/mL NT-Pro-B Natriuret Pep pg/mL Total Protein 6.8 (6.3-8.2) g/dL Albumin 4.2 (3.5-5.0) g/dL Influenza Type A RNA (Not Detectd) Influenza Type B (PCR) (Not Detectd) 10/07/19 10/07/19 10/07/19 Range/Units 11:10 11:10 11:10 WBC (3.8-10.6) k/uL RBC (3.80-5.40) m/uL Hgb (11.4-16.0) gm/dL Hct (34.0-46.0) % MCV (80.0-100.0) fL MCH (25.0-35.0) pg MCHC (31.0-37.0) g/dL RDW (11.5-15.5) % Plt Count (150-450) k/uL Neutrophils % % Lymphocytes % % Monocytes % % Eosinophils % % Basophils % % Neutrophils # (1.3-7.7) k/uL Lymphocytes # (1.0-4.8) k/uL Monocytes # (0-1.0) k/uL Eosinophils # (0-0.7) k/uL Basophils # (0-0.2) k/uL PT (9.0-12.0) sec INR (<1.2) APTT (22.0-30.0) sec D-Dimer (<0.60) mg/L FEU Sodium (137-145) mmol/L Potassium (3.5-5.1) mmol/L Chloride (98-107) mmol/L Carbon Dioxide (22-30) mmol/L Anion Gap mmol/L BUN (7-17) mg/dL Creatinine (0.52-1.04) mg/dL Est GFR (CKD-EPI)AfAm (>60 ml/min/1.73 sqM) Est GFR (CKD-EPI)NonAf (>60 ml/min/1.73 sqM) Glucose (74-99) mg/dL Plasma Lactic Acid Eriberto 1.4 (0.7-2.0) mmol/L Calcium (8.4-10.2) mg/dL Magnesium (1.6-2.3) mg/dL Total Bilirubin (0.2-1.3) mg/dL AST (14-36) U/L ALT (4-34) U/L Alkaline Phosphatase (38-126) U/L Creatine Kinase (30-135) U/L Troponin I 0.287 H* (0.000-0.034) ng/mL NT-Pro-B Natriuret Pep 5220 pg/mL Total Protein (6.3-8.2) g/dL Albumin (3.5-5.0) g/dL Influenza Type A RNA (Not Detectd) Influenza Type B (PCR) (Not Detectd) 10/07/19 Range/Units 11:10 WBC (3.8-10.6) k/uL RBC (3.80-5.40) m/uL Hgb (11.4-16.0) gm/dL Hct (34.0-46.0) % MCV (80.0-100.0) fL MCH (25.0-35.0) pg MCHC (31.0-37.0) g/dL RDW (11.5-15.5) % Plt Count (150-450) k/uL Neutrophils % % Lymphocytes % % Monocytes % % Eosinophils % % Basophils % % Neutrophils # (1.3-7.7) k/uL Lymphocytes # (1.0-4.8) k/uL Monocytes # (0-1.0) k/uL Eosinophils # (0-0.7) k/uL Basophils # (0-0.2) k/uL PT (9.0-12.0) sec INR (<1.2) APTT (22.0-30.0) sec D-Dimer (<0.60) mg/L FEU Sodium (137-145) mmol/L Potassium (3.5-5.1) mmol/L Chloride (98-107) mmol/L Carbon Dioxide (22-30) mmol/L Anion Gap mmol/L BUN (7-17) mg/dL Creatinine (0.52-1.04) mg/dL Est GFR (CKD-EPI)AfAm (>60 ml/min/1.73 sqM) Est GFR (CKD-EPI)NonAf (>60 ml/min/1.73 sqM) Glucose (74-99) mg/dL Plasma Lactic Acid Eriberto (0.7-2.0) mmol/L Calcium (8.4-10.2) mg/dL Magnesium (1.6-2.3) mg/dL Total Bilirubin (0.2-1.3) mg/dL AST (14-36) U/L ALT (4-34) U/L Alkaline Phosphatase (38-126) U/L Creatine Kinase (30-135) U/L Troponin I (0.000-0.034) ng/mL NT-Pro-B Natriuret Pep pg/mL Total Protein (6.3-8.2) g/dL Albumin (3.5-5.0) g/dL Influenza Type A RNA Not Detected (Not Detectd) Influenza Type B (PCR) Not Detected (Not Detectd) - Radiology Data Radiology results: report reviewed (I did review the imaging and report evidence of bibasilar infiltrate.), image reviewed Critical Care Time Critical Care Time: Yes Critical Care Time: Critical care time: 39 minutes which included initial presentation with history physical labs x-rays also reevaluation the patient response to therapy discussed with paramedics upon arrival discussion with the admitting physician admission orders and documentation of the above. Disposition Clinical Impression: Non-STEMI (non-ST elevated myocardial infarction), Pneumonia, COPD with exacerbation, Hypoxemia, CHF (congestive heart failure), Febrile illness, acute Disposition: ADMITTED IP TO THIS HOSP Condition: Fair Referrals: Alo Robins MD [Primary Care Provider] - 1-2 days
[2019-10-07] MEDS: SODIUM CHLORIDE 0.9% 1,000 ML IV STA ×2 (11:15→13:09)
[2019-10-07 11:28] LABS: Basophils % (A) 0 %; Eosinophils # (A) 0.1 k/uL (0-0.7); Eosinophils % (A) 0 %; HCT 47.2 % (34.0-46.0); HGB 15.3 gm/dL (11.4-16.0); Lymphocytes # (A) 1.3 k/uL (1.0-4.8); Lymphocytes % (A) 7 %; MCH 28.6 pg (25.0-35.0); MCHC 32.5 g/dL (31.0-37.0); MCV 88.2 fL (80.0-100.0); Mean Platelet Volume 8.1; Monocytes # (A) 0.5 k/uL (0-1.0); Monocytes % (A) 3 %; Neutrophils # (A) 16.8 k/uL (1.3-7.7); Neutrophils % (A) 90 %; Platelet Count 263 k/uL (150-450); RBC 5.35 m/uL (3.80-5.40); WBC 18.7 k/uL (3.8-10.6)
[2019-10-07 11:38] LABS: Albumin 4.2 g/dL (3.5-5.0); Calcium 9.5 mg/dL (8.4-10.2); Potassium 4.1 mmol/L (3.5-5.1); Total Bilirubin 0.5 mg/dL (0.2-1.3); Total Protein 6.8 g/dL (6.3-8.2)
[2019-10-07 11:57] LABS: Partial Thromboplastin Time 23.2 sec (22.0-30.0); Prothrombin Time 10.2 sec (9.0-12.0)
[2019-10-07 12:01] LABS: D-Dimer 0.65 mg/L FEU (<0.60)
--- NOTE | 2019-10-07 12:01 | XR ---
EXAMINATION TYPE: XR chest 2V DATE OF EXAM: 10/07/2019 COMPARISON: NONE HISTORY: Difficulty breathing, hypertension TECHNIQUE: Frontal and lateral views of the chest are obtained. FINDINGS: Bones show normal mineralization. Basilar increased density is noted. No evident pneumotho rax. Heart is enlarged. Aorta is dense. IMPRESSION: Suspect subsegmental basilar atelectatic changes, correlate to exclude pneumonia. Cardio megaly. Heart size appearance may be accentuated by rotation.
[2019-10-07] MEDS ORDERED: cefTRIAXone IN SWFI 1,000 MG/10 ML SYRINGE IVP STA (12:23)
[2019-10-07] MEDS ORDERED: FUROSEMIDE 10 MG/ML 4 ML VIAL IV STA (12:24)
[2019-10-07] MEDS ORDERED: NITROGLYCERIN SL TABS 0.4 MG TAB SUBLINGUAL PRN (12:51)
[2019-10-07] MEDS ORDERED: HEPARIN SODIUM,PORCINE 5,000 UNIT/ML 1 ML VIAL IV ONE (12:51)
[2019-10-07] MEDS ORDERED: SODIUM CHLORIDE 0.9% 1,000 ML IV SCH (13:00)
[2019-10-07] MEDS: HEPARIN SOD,PORK IN 0.45% NACL 25,000 UNIT in 0.45% NACL 1 250ML.BAG IV SCH (13:16)
[2019-10-07] MEDS ORDERED: METOPROLOL TARTRATE 25 MG TAB PO SCH (13:30)
[2019-10-07] MEDS ORDERED: IPRATROPIUM-ALBUTEROL 3 ML NEB INHALATION PRN (16:06)
[2019-10-07] MEDS ORDERED: PROCHLORPERAZINE 10 MG TAB PO PRN (16:07)
[2019-10-07] MEDS ORDERED: PREGABALIN 50 MG CAP PO PRN (16:07)
[2019-10-07] MEDS: NICOTINE 14MG/24HR PATCH TRANSDERM SCH (16:13)
--- NOTE | 2019-10-07 16:17 | P.HPIM ---
History of Present Illness This is a pleasant 69 years old female with past medical history of chronic kidney disease stage III, hypertension, hyperlipidemia, history of C. diff and hysterectomy, anxiety. Presents because of feeling week for two days duration , with coughing and white phlegm , she reports feeling gasping for air with waking in the middle of night , she could not sleep last night because of this suspicious for paroxysmal nocturnal dyspnea , pt noticed bilateral leg swelling over the last three days she denies chest pain , no dizziness, no urinary complaint , she did not have bowel movement for three days, but she has good appetite, she smokes about 1/2 PPD , no alcohol , she uses marijuana and has medical card for her chronic low back pain On admission vitals showed temperature 99.1, heart rate is 101, down to 92-93, blood pressure 168/90, oxygen saturation is 70% on room air. Left showing doubly BC of 18.7, hemoglobin at 15.3, d-dimer is elevated at 0.65, sodium 136, creatinine 1.0, GFR 58, her troponin is elevated at 0.28, creatine kinase to 95, lactic acid is 1.4, magnesium is normal at 2.0, liver enzymes not elevated, if one set is negative. Chest x-ray: Atelectasis versus pneumonia EKG showing sinus tachycardia at 101, QTC 448, no significant ST-T changes. The emergency room she has received Rocephin, 1 time dose of Lasix, solid material 125 mg and given 1 L of normal saline a started at 100 mL per hour. ProBNP is elevated at 5220. MAPs is checked and she is on morphoine ER and IR, lyrica and clonazepam Review of Systems CONSTITUTIONAL: No fever, no malaise, no fatigue. HEENT: No recent visual problems or hearing problems. Denied any sore throat. CARDIOVASCULAR: no palpitations, no syncope. PULMONARY: no hemoptysis. GASTROINTESTINAL: No diarrhea, no nausea, no vomiting, no abdominal pain. Normoactive bowel sounds. NEUROLOGICAL: No headaches, no weakness, no numbness. HEMATOLOGICAL: Denies any bleeding or petechiae. GENITOURINARY: Denies any burning micturition, frequency, or urgency. MUSCULOSKELETAL/RHEUMATOLOGICAL: Denies any joint pain, swelling, or any muscle pain. ENDOCRINE: Denies any polyuria or polydipsia. Past Medical History Past Medical History: Hyperlipidemia, Hypertension Additional Past Medical History / Comment(s): Stage III kidney disease, low potassium r/t diarrhea History of Any Multi-Drug Resistant Organisms: C-DIFF Date of last positivie culture/infection: C-Diff in November 2017 MDRO Source:: stool Past Surgical History: Back Surgery, Hysterectomy, Orthopedic Surgery, Tonsillectomy Past Psychological History: Anxiety Smoking Status: Current every day smoker Past Alcohol Use History: None Reported Past Drug Use History: Marijuana - Past Family History Father Family Medical History: Cancer Additional Family Medical History / Comment(s): from lymphoma Mother Additional Family Medical History / Comment(s): Mother after a fall with head injury recently. Medications and Allergies Home Medications Medication Instructions Recorded Confirmed Type Morphine Sulfate ER [Ms Contin] 60 mg PO Q12HR 11/18/17 10/07/19 History Morphine Sulfate Ir [MSIR] 15 mg PO BID 11/18/17 10/07/19 History clonazePAM [KlonoPIN] 1 mg PO HS 11/18/17 10/07/19 History Furosemide [Lasix] 20 mg PO DAILY PRN 10/07/19 10/07/19 History Metoprolol Succinate [Toprol XL] 50 mg PO DAILY 10/07/19 10/07/19 History Pregabalin [Lyrica] See Taper PO DIRECTED 10/07/19 10/07/19 History Prochlorperazine [Compazine] 10 mg PO TID PRN 10/07/19 10/07/19 History Rosuvastatin [Crestor] 10 mg PO DAILY 10/07/19 10/07/19 History Allergies Allergy/AdvReac Type Severity Reaction Status Date / Time Antifungal - Imidazole AdvReac Rash/Hives Verified 10/07/19 11:56 erythromycin base AdvReac Rash/Hives Verified 10/07/19 11:56 peanut AdvReac Anaphylaxis Verified 10/07/19 11:56 tomato AdvReac Anaphylaxis Verified 10/07/19 11:56 tuna oil AdvReac Rash/Hives Verified 10/07/19 11:56 RASBERRIES AdvReac Anaphylaxis Uncoded 11/18/17 17:07 Physical Exam Vitals: Vital Signs Temp Pulse Resp BP Pulse Ox 10/07/19 11:27 93 10/07/19 11:16 92 10/07/19 10:55 99.1 F 102 H 19 168/90 70 L Intake and Output 10/06/19 10/07/19 10/07/19 22:59 06:59 14:59 Other: Weight 81.647 kg GENERAL: The patient is alert and oriented x3, not in any acute distress. Well developed, well nourished. HEENT: Pupils are round and equally reacting to light. EOMI. No scleral icterus. No conjunctival pallor. Normocephalic, atraumatic. No pharyngeal erythema. No thyromegaly. CARDIOVASCULAR: S1 and S2 present. No murmurs, rubs, or gallops. PULMONARY: Chest is clear to auscultation, no wheezing or crackles. ABDOMEN: Soft, nontender, nondistended, normoactive bowel sounds. No palpable organomegaly. MUSCULOSKELETAL: No joint swelling or deformity. EXTREMITIES: No cyanosis, clubbing, or pedal edema. NEUROLOGICAL: Gross neurological examination did not reveal any focal deficits. SKIN: No rashes. No petechiae Results CBC & Chem 7: 10/07/19 11:10 10/07/19 11:10 Labs: Abnormal Lab Results - Last 24 Hours (Table) 10/07/19 10/07/19 10/07/19 Range/Units 11:10 11:10 11:10 WBC 18.7 H (3.8-10.6) k/uL Hct 47.2 H (34.0-46.0) % Neutrophils # 16.8 H (1.3-7.7) k/uL D-Dimer 0.65 H (<0.60) mg/L FEU Sodium 136 L (137-145) mmol/L BUN 23 H (7-17) mg/dL Glucose 131 H (74-99) mg/dL Creatine Kinase 295 H (30-135) U/L Troponin I (0.000-0.034) ng/mL 10/07/19 Range/Units 11:10 WBC (3.8-10.6) k/uL Hct (34.0-46.0) % Neutrophils # (1.3-7.7) k/uL D-Dimer (<0.60) mg/L FEU Sodium (137-145) mmol/L BUN (7-17) mg/dL Glucose (74-99) mg/dL Creatine Kinase (30-135) U/L Troponin I 0.287 H* (0.000-0.034) ng/mL Assessment and Plan Assessment: Elevated troponin, rule out cardiac causes and non-stemi Acute hypoxic respiratory failure high suspicion for heart failure with elevated pro-BNP could has elements of chronic obstructive pulmonary dis nicotine dependence Elevated d-dimer Possible community-acquired pneumonia. Chest x-ray atelectasis versus pneumonia which cannot be excluded.high wbc Hypertension Hyperlipidemia Chronic kidney disease stage III History of C. diff Status post hysterectomy Anxiety not an active issue Plan: This is a pleasant 69 years old female, comes with possible NSTEM, CHF and possible COPD, stop iv fluid , continue with lasix, continue with heparin drip , serial troponin , cardiology and pulmonary consults, start steroid, bronchodilator, oxygen therapy as needed, check Hba1c, c/w aspirin. Hold clonazepam for pt is sleepy, check pro-calcitonic, and continue with ceftiraxone Labs and medication were reviewed.. Continue same treatment. Continue with symptomatic treatment. Resume home medication. Monitor lytes and vitals. DVT and GI prophylaxis. Further recommendations of the clinical course of the patient DVT prophylaxis: heparin GI Prophylaxis: Pepcid PT/OT: Pending Prognosis is guarded
[2019-10-07] MEDS: methylPREDNISolone SOD SUCCI 125 MG/2 ML VIAL IV SCH ×2 (17:05→22:17)
[2019-10-07] MEDS: DOXYCYCLINE 100 MG CAP PO SCH (19:58)
[2019-10-07] MEDS: MORPHINE SULFATE ER 60 MG TABLET PO SCH (19:58)
[2019-10-07] MEDS ORDERED: FUROSEMIDE 10 MG/ML 4 ML VIAL IV SCH (21:00)
[2019-10-08 03:41] LABS: Basophils % (A) 0 %; Eosinophils % (A) 0 %; HCT 47.9 % (34.0-46.0); HGB 15.2 gm/dL (11.4-16.0); Lymphocytes # (A) 1.2 k/uL (1.0-4.8); Lymphocytes % (A) 8 %; MCHC 31.7 g/dL (31.0-37.0); MCV 88.5 fL (80.0-100.0); Mean Platelet Volume 8.7; Monocytes # (A) 0.5 k/uL (0-1.0); Monocytes % (A) 3 %; Neutrophils # (A) 13.6 k/uL (1.3-7.7); Neutrophils % (A) 88 %; Platelet Count 246 k/uL (150-450); RBC 5.42 m/uL (3.80-5.40); RDW 13.1 % (11.5-15.5); WBC 15.4 k/uL (3.8-10.6)
[2019-10-08 03:51] LABS: Calcium 9.1 mg/dL (8.4-10.2); Potassium 3.3 mmol/L (3.5-5.1)
[2019-10-08] MEDS: MORPHINE SULFATE IR 15 MG TABLET PO PRN (06:29)
[2019-10-08] MEDS ORDERED: Potassium Replacement Protocol 1 EACH MISC MISCELLANE PRN ×2 (06:45→08:04)
--- NOTE | 2019-10-08 07:47 | XR ---
EXAMINATION TYPE: XR chest 1V DATE OF EXAM: 10/08/2019 COMPARISON: Prior chest 10/07/2019 HISTORY: Abnormal chest x-ray, weakness TECHNIQUE: Single frontal view of the chest is obtained. FINDINGS: There is improved aeration at the lung bases. No evident pneumothorax. Heart is stable. Ao rta is dense. Bone mineralization unchanged. There are overlying cardiac leads. IMPRESSION: Improved aeration. Cardiomegaly. Follow-up PA and lateral chest x-ray suggested when pat ient is stable.
--- NOTE | 2019-10-08 08:10 | P.PN ---
Subjective This is a pleasant 69 years old female with past medical history of chronic kidney disease stage III, hypertension, hyperlipidemia, history of C. diff and hysterectomy, anxiety. Presents because of feeling week for two days duration , with coughing and white phlegm , she reports feeling gasping for air with waking in the middle of night , she could not sleep last night because of this suspicious for paroxysmal nocturnal dyspnea , pt noticed bilateral leg swelling over the last three days she denies chest pain , no dizziness, no urinary complaint , she did not have bowel movement for three days, but she has good appetite, she smokes about 1/2 PPD , no alcohol , she uses marijuana and has medical card for her chronic low back pain On admission vitals showed temperature 99.1, heart rate is 101, down to 92-93, blood pressure 168/90, oxygen saturation is 70% on room air. Left showing doubly BC of 18.7, hemoglobin at 15.3, d-dimer is elevated at 0.65, sodium 136, creatinine 1.0, GFR 58, her troponin is elevated at 0.28, creatine kinase to 95, lactic acid is 1.4, magnesium is normal at 2.0, liver enzymes not elevated, if one set is negative. Chest x-ray: Atelectasis versus pneumonia EKG showing sinus tachycardia at 101, QTC 448, no significant ST-T changes. The emergency room she has received Rocephin, 1 time dose of Lasix, solid material 125 mg and given 1 L of normal saline a started at 100 mL per hour. ProBNP is elevated at 5220. MAPs is checked and she is on morphoine ER and IR, lyrica and clonazepam 10/08/19 Patient fully awake and oriented, no chest pain, no coughing, states that her breathing is easy and down however is still kind of heavy. No other complaints. She still have mild pitting leg edema. She is saturating 91% on 6 L of oxygen via nasal cannula. Mildly tachycardic at 97, afebrile, blood pressure 139/67. WBC is coming down to 15.4, pro calcitonin is elevated at 0.16, creatinine is 1.1, low potassium and sodium mildly at 3.3 and 136 respectively. Replace electrolytes. Start the patient on normal saline at 75 mL/h, continue with ceftriaxone and doxycycline. Continue with steroids, continue with heparin drip. Continue with aspirin ROS CONSTITUTIONAL: No fever, no malaise, no fatigue. HEENT: No recent visual problems or hearing problems. Denied any sore throat. CARDIOVASCULAR: no palpitations, no syncope. PULMONARY: no hemoptysis. GASTROINTESTINAL: No diarrhea, no nausea, no vomiting, no abdominal pain. Normoactive bowel sounds. NEUROLOGICAL: No headaches, no weakness, no numbness. HEMATOLOGICAL: Denies any bleeding or petechiae. GENITOURINARY: Denies any burning micturition, frequency, or urgency. MUSCULOSKELETAL/RHEUMATOLOGICAL: Denies any joint pain, swelling, or any muscle pain. ENDOCRINE: Denies any polyuria or polydipsia. Objective - Vital Signs Vital signs: Vital Signs Temp 97.9 F 10/08/19 07:49 Pulse 97 10/08/19 07:49 Resp 13 10/08/19 07:49 BP 139/67 10/08/19 07:49 Pulse Ox 91 L 10/08/19 07:49 Intake & Output 10/07/19 10/08/19 10/08/19 18:59 06:59 18:59 Intake Total 240 157.231 Output Total 200 2000 Balance 40 -7382.769 Weight 81.647 kg 78.7 kg Intake: Intake, IV Titration 157.231 Amount Heparin Sod,Pork in 0.45% 157.231 NaCl 25,000 unit In 0.45 % NaCl 1 250ml.bag @ 12 UNITS/KG/HR 9.798 mls/hr IV .Q24H [facility] Rx#: [id number] Oral 240 Output: Urine 200 2000 Other: # Voids 1 1 - Exam GENERAL: The patient is alert and oriented x3, not in any acute distress. Well developed, well nourished. HEENT: Pupils are round and equally reacting to light. EOMI. No scleral icterus. No conjunctival pallor. Normocephalic, atraumatic. No pharyngeal erythema. No thyromegaly. CARDIOVASCULAR: S1 and S2 present. No murmurs, rubs, or gallops. -PULMONARY: Chest is clear to auscultation, no wheezing s. Left basal crepitation ABDOMEN: Soft, nontender, nondistended, normoactive bowel sounds. No palpable organomegaly. MUSCULOSKELETAL: No joint swelling or deformity. -EXTREMITIES: No cyanosis, clubbing,. 1+ bilateral pitting leg edema NEUROLOGICAL: Gross neurological examination did not reveal any focal deficits. SKIN: No rashes. No petechiae - Labs CBC & Chem 7: 10/08/19 02:34 10/08/19 02:34 Labs: Abnormal Lab Results - Last 24 Hours (Table) 10/07/19 10/07/19 10/07/19 Range/Units 11:10 11:10 11:10 WBC 18.7 H (3.8-10.6) k/uL RBC (3.80-5.40) m/uL Hct 47.2 H (34.0-46.0) % Neutrophils # 16.8 H (1.3-7.7) k/uL APTT (22.0-30.0) sec D-Dimer 0.65 H (<0.60) mg/L FEU Sodium 136 L (137-145) mmol/L Potassium (3.5-5.1) mmol/L Chloride (98-107) mmol/L BUN 23 H (7-17) mg/dL Creatinine (0.52-1.04) mg/dL Glucose 131 H (74-99) mg/dL Creatine Kinase 295 H (30-135) U/L Troponin I (0.000-0.034) ng/mL Procalcitonin (0.02-0.09) ng/mL 10/07/19 10/07/19 10/07/19 Range/Units 11:10 11:10 15:55 WBC (3.8-10.6) k/uL RBC (3.80-5.40) m/uL Hct (34.0-46.0) % Neutrophils # (1.3-7.7) k/uL APTT (22.0-30.0) sec D-Dimer (<0.60) mg/L FEU Sodium (137-145) mmol/L Potassium (3.5-5.1) mmol/L Chloride (98-107) mmol/L BUN (7-17) mg/dL Creatinine (0.52-1.04) mg/dL Glucose (74-99) mg/dL Creatine Kinase (30-135) U/L Troponin I 0.287 H* 0.224 H* (0.000-0.034) ng/mL Procalcitonin 0.16 H (0.02-0.09) ng/mL 10/07/19 10/07/19 10/08/19 Range/Units 18:15 22:17 02:34 WBC (3.8-10.6) k/uL RBC (3.80-5.40) m/uL Hct (34.0-46.0) % Neutrophils # (1.3-7.7) k/uL APTT 39.7 H (22.0-30.0) sec D-Dimer (<0.60) mg/L FEU Sodium 136 L (137-145) mmol/L Potassium 3.3 L (3.5-5.1) mmol/L Chloride 97 L (98-107) mmol/L BUN 27 H (7-17) mg/dL Creatinine 1.10 H (0.52-1.04) mg/dL Glucose 122 H (74-99) mg/dL Creatine Kinase (30-135) U/L Troponin I 0.146 H* (0.000-0.034) ng/mL Procalcitonin (0.02-0.09) ng/mL 10/08/19 Range/Units 02:34 WBC 15.4 H (3.8-10.6) k/uL RBC 5.42 H (3.80-5.40) m/uL Hct 47.9 H (34.0-46.0) % Neutrophils # 13.6 H (1.3-7.7) k/uL APTT (22.0-30.0) sec D-Dimer (<0.60) mg/L FEU Sodium (137-145) mmol/L Potassium (3.5-5.1) mmol/L Chloride (98-107) mmol/L BUN (7-17) mg/dL Creatinine (0.52-1.04) mg/dL Glucose (74-99) mg/dL Creatine Kinase (30-135) U/L Troponin I (0.000-0.034) ng/mL Procalcitonin (0.02-0.09) ng/mL Assessment and Plan Assessment: Elevated troponin, rule out cardiac causes and non-stemi Acute hypoxic respiratory failure high suspicion for heart failure with elevated pro-BNP could has elements of chronic obstructive pulmonary dis nicotine dependence Elevated d-dimer Possible community-acquired pneumonia. Chest x-ray atelectasis versus pneumonia which cannot be excluded.high wbc Hypertension Hyperlipidemia Chronic kidney disease stage III History of C. diff Status post hysterectomy Anxiety not an active issue Plan: This is a pleasant 69 years old female, comes with possible NSTEM, CHF and possible COPD, continue with normal saline continue with heparin drip , serial troponin , cardiology and pulmonary consults, start steroid, bronchodilator, oxygen therapy as needed, check Hba1c, c/w aspirin. Hold clonazepam for pt is sleepy,and continue with ceftiraxone Labs and medication were reviewed.. Continue same treatment. Continue with symptomatic treatment. Resume home medication. Monitor lytes and vitals. DVT and GI prophylaxis. Further recommendations of the clinical course of the patient DVT prophylaxis: heparin GI Prophylaxis: Pepcid PT/OT: Pending Prognosis is guarded
[2019-10-08] MEDS: SODIUM CHLORIDE 0.9% 1,000 ML IV SCH ×2 (08:36→17:31)
[2019-10-08] MEDS ORDERED: FUROSEMIDE 40 MG TAB PO SCH (09:00)
[2019-10-08] MEDS: methylPREDNISolone SOD SUCCI 40 MG/ML 1 ML VIAL IV SCH ×2 (09:36→20:10)
[2019-10-08] MEDS: MORPHINE SULFATE ER 60 MG TABLET PO SCH ×2 (09:37→20:10)
[2019-10-08] MEDS: ASPIRIN 325 MG TAB PO SCH (09:37)
[2019-10-08] MEDS: METOPROLOL SUCCINATE (ER) 50 MG TAB.ER.24H PO SCH (09:37)
[2019-10-08] MEDS: ATORVASTATIN 20 MG TAB PO SCH (09:37)
[2019-10-08] MEDS: FUROSEMIDE 40 MG TAB PO SCH (09:38)
[2019-10-08] MEDS: POTASSIUM CHLORIDE ER 20 MEQ TAB.ER PO SCH ×2 (09:38→10:58)
[2019-10-08] MEDS: DOXYCYCLINE 100 MG CAP PO SCH ×2 (09:38→20:10)
[2019-10-08] MEDS: NICOTINE 14MG/24HR PATCH TRANSDERM SCH (09:38)
--- NOTE | 2019-10-08 10:16 | P.CNPUL ---
History of Present Illness Consult date: 10/08/19 Reason for consult: dyspnea, hypoxemia Chief complaint: Altered mental status, dyspnea, hypoxemia History of present illness: 69-year-old white female patient of Dr. Alo Robins, with past medical history of hypertension, hyperlipidemia, anxiety, chronic back pain, who was brought into the hospital on O2 2019 by ambulance for evaluation of weakness, not feeling well. She states she does not recall much about the events of yesterday, she states she woke up yesterday in the morning not feeling well, she denies being short of breath, although her chart states that patient was having symptoms of paroxysmal nocturnal dyspnea, waking up feeling short of breath and gasping for air in the middle of the night, bilateral leg swelling over the last 3 days. She denied any fever or chills, denied any chest pain, denied any cough, no congestion. Denied any nausea vomiting or diarrhea, no urinary complaints. No loss of appetite. Patient is a nonsmoker, for 42 years half a pack a day and she uses medical marijuana for chronic low back pain. Chest x- ray showed subsegmental atelectasis. Admission vital signs showed a low-grade fever with a temp of 99.1, heart rate 101, in sinus mechanism, blood pressure is 160/90, patient was hypoxemic with a pulse ox in the 70s on room air. White blood cell count was 18.7, hemoglobin is 15.3, d-dimer was modestly elevated at 0.65, sodium of 136, creatinine is 1, GFR is 58, patient had a troponin leak of 0.287, 0.224, and 0.146, proBNP was elevated at 5220. On admission to the unit patient was lethargic, she is more awake and alert on today's exam, although she is a poor historian, she cannot recall some of the events that happened yesterday. Calcitonin came back very modestly elevated at 0.16, a has been afebrile, she was empirically placed on a combination of Rocephin and doxycycline, no wheezing noted on today's exam, no coughing, lung sounds reveal scattered crackles at bilateral bases. This morning she is on 6 L per high flow nasal cannula her pulse ox is 96-99%, Review of Systems All systems: negative Constitutional: Denies chills, Denies fever Eyes: denies blurred vision, denies pain Ears, nose, mouth and throat: Denies headache, Denies sore throat Cardiovascular: Reports leg edema, Reports paroxysmal nocturnal dyspnea, Denies chest pain, Denies shortness of breath Respiratory: Reports dyspnea, Denies cough Gastrointestinal: Denies abdominal pain, Denies diarrhea, Denies nausea, Denies vomiting Genitourinary: Denies dysuria, Denies hematuria Musculoskeletal: Denies myalgias Integumentary: Denies pruritus, Denies rash Neurological: Denies numbness, Denies weakness Psychiatric: Denies anxiety, Denies depression Endocrine: Denies fatigue, Denies weight change Past Medical History Past Medical History: Hyperlipidemia, Hypertension Additional Past Medical History / Comment(s): Stage III kidney disease, low potassium r/t diarrhea History of Any Multi-Drug Resistant Organisms: C-DIFF Date of last positivie culture/infection: C-Diff in November 2017 MDRO Source:: stool Past Surgical History: Back Surgery, Hysterectomy, Orthopedic Surgery, Tonsillectomy Additional Past Surgical History / Comment(s): Low back surgery, colonoscopy Past Psychological History: Anxiety Smoking Status: Current every day smoker Past Alcohol Use History: None Reported Past Drug Use History: Marijuana - Past Family History Father Family Medical History: Cancer Additional Family Medical History / Comment(s): from lymphoma Mother Additional Family Medical History / Comment(s): Mother after a fall with he ad injury recently. Medications and Allergies Home Medications Medication Instructions Recorded Confirmed Type Morphine Sulfate ER [Ms Contin] 60 mg PO Q12HR 11/18/17 10/07/19 History Morphine Sulfate Ir [MSIR] 15 mg PO BID 11/18/17 10/07/19 History clonazePAM [KlonoPIN] 1 mg PO HS 11/18/17 10/07/19 History Furosemide [Lasix] 20 mg PO DAILY PRN 10/07/19 10/07/19 History Metoprolol Succinate [Toprol XL] 50 mg PO DAILY 10/07/19 10/07/19 History Pregabalin [Lyrica] See Taper PO DIRECTED 10/07/19 10/07/19 History Prochlorperazine [Compazine] 10 mg PO TID PRN 10/07/19 10/07/19 History Rosuvastatin [Crestor] 10 mg PO DAILY 10/07/19 10/07/19 History Allergies Allergy/AdvReac Type Severity Reaction Status Date / Time Antifungal - Imidazole AdvReac Rash/Hives Verified 10/07/19 11:56 erythromycin base AdvReac Rash/Hives Verified 10/07/19 11:56 peanut AdvReac Anaphylaxis Verified 10/07/19 11:56 tomato AdvReac Anaphylaxis Verified 10/07/19 11:56 tuna oil AdvReac Rash/Hives Verified 10/07/19 11:56 RASBERRIES AdvReac Anaphylaxis Uncoded 11/18/17 17:07 Physical Exam Vitals: Vital Signs Temp Pulse Pulse Resp BP BP Pulse Ox 10/08/19 09:36 133/64 10/08/19 09:33 96 10/08/19 09:32 98 99 10/08/19 07:49 97.9 F 97 13 139/67 91 L 10/08/19 04:00 98.0 F 101 H 20 168/69 91 L 10/08/19 00:00 98.0 F 98 20 138/63 90 L 10/07/19 20:07 90 10/07/19 19:53 94 10/07/19 19:46 98.1 F 95 20 138/74 90 L 10/07/19 17:09 101 H 167/77 92 L 10/07/19 15:54 101 H 92 L 10/07/19 15:39 20 98 10/07/19 15:27 98 10/07/19 15:15 101 H 20 10/07/19 15:10 99.3 F 103 H 20 165/80 10/07/19 14:40 101 H 18 170/87 10/07/19 14:00 98 16 90 L 10/07/19 13:40 98 42 H 189/94 89 L 10/07/19 13:30 102 H 18 180/99 93 L 10/07/19 13:20 101 H 16 180/99 88 L 10/07/19 13:10 101 H 14 180/99 87 L 10/07/19 11:27 93 10/07/19 11:16 92 10/07/19 10:55 99.1 F 102 H 19 168/90 70 L Intake and Output 10/07/19 10/08/19 10/08/19 22:59 06:59 14:59 Intake Total 304.83 92.401 Output Total 1000 1200 Balance -695.17 -1107.599 Intake: Intake, IV Titration 64.83 92.401 Amount Heparin Sod,Pork in 0.45% 64.83 92.401 NaCl 25,000 unit In 0.45 % NaCl 1 250ml.bag @ 12 UNITS/KG/HR 9.798 mls/hr IV .Q24H [facility] Rx#: [id number] Oral 240 Output: Urine 1000 1200 Other: # Voids 1 1 Weight 78.7 kg GENERAL EXAM: Alert, very pleasant, 69-year-old white female on 6 L per high flow nasal cannula with a pulse ox of 96-99% who appears to be a poor historian, does not remember the events that brought her to the hospital HEAD: Normocephalic/atraumatic. EYES: Normal reaction of pupils, equal size. Conjunctiva pink, sclera white. NOSE: Clear with pink turbinates. THROAT: No erythema or exudates. NECK: No masses, no JVD, no thyroid enlargement, no adenopathy. CHEST: No chest wall deformity. Symmetrical expansion. LUNGS: Equal air entry with coarse bibasilar crackles, no wheeze, rhonchi or dullness. CVS: Regular rate and rhythm, normal S1 and S2, no gallops, no murmurs, no rubs ABDOMEN: Soft, nontender. No hepatosplenomegaly, normal bowel sounds, no guarding or rigidity. EXTREMITIES: No clubbing, no edema, no cyanosis, 2+ pulses and upper and lower extremities. MUSCULOSKELETAL: Muscle strength and tone normal. SPINE: No scoliosis or deformity SKIN: No rashes CENTRAL NERVOUS SYSTEM: Alert and oriented -3. No focal deficits, tone is normal in all 4 extremities. PSYCHIATRIC: Alert and oriented -3. Appropriate affect. Intact judgment and insight. Results - Laboratory Findings CBC and BMP: 10/08/19 02:34 10/08/19 02:34 ABG WBC 15.4 k/uL (3.8-10.6) H 10/08/19 02:34 RBC 5.42 m/uL (3.80-5.40) H 10/08/19 02:34 Hgb 15.2 gm/dL (11.4-16.0) 10/08/19 02:34 Hct 47.9 % (34.0-46.0) H 10/08/19 02:34 MCV 88.5 fL (80.0-100.0) 10/08/19 02:34 MCH 28.0 pg (25.0-35.0) 10/08/19 02:34 MCHC 31.7 g/dL (31.0-37.0) 10/08/19 02:34 RDW 13.1 % (11.5-15.5) 10/08/19 02:34 Plt Count 246 k/uL (150-450) 10/08/19 02:34 Neutrophils % 88 % 10/08/19 02:34 Lymphocytes % 8 % 10/08/19 02:34 Monocytes % 3 % 10/08/19 02:34 Eosinophils % 0 % 10/08/19 02:34 Basophils % 0 % 10/08/19 02:34 Neutrophils # 13.6 k/uL (1.3-7.7) H 10/08/19 02:34 Lymphocytes # 1.2 k/uL (1.0-4.8) 10/08/19 02:34 Monocytes # 0.5 k/uL (0-1.0) 10/08/19 02:34 Eosinophils # 0.0 k/uL (0-0.7) 10/08/19 02:34 Basophils # 0.0 k/uL (0-0.2) 10/08/19 02:34 PT 10.2 sec (9.0-12.0) 10/07/19 11:10 INR 1.0 (<1.2) 10/07/19 11:10 APTT 23.1 sec (22.0-30.0) 10/08/19 02:34 D-Dimer 0.65 mg/L FEU (<0.60) H 10/07/19 11:10 Sodium 136 mmol/L (137-145) L 10/08/19 02:34 Potassium 3.3 mmol/L (3.5-5.1) L 10/08/19 02:34 Chloride 97 mmol/L (98-107) L 10/08/19 02:34 Carbon Dioxide 28 mmol/L (22-30) 10/08/19 02:34 Anion Gap 11 mmol/L 10/08/19 02:34 BUN 27 mg/dL (7-17) H 10/08/19 02:34 Creatinine 1.10 mg/dL (0.52-1.04) H 10/08/19 02:34 Est GFR (CKD-EPI)AfAm 60 (>60 ml/min/1.73 sqM) 10/08/19 02:34 Est GFR (CKD-EPI)NonAf 52 (>60 ml/min/1.73 sqM) 10/08/19 02:34 Glucose 122 mg/dL (74-99) H 10/08/19 02:34 Plasma Lactic Acid Eriberto 1.4 mmol/L (0.7-2.0) 10/07/19 11:10 Calcium 9.1 mg/dL (8.4-10.2) 10/08/19 02:34 Magnesium 2.0 mg/dL (1.6-2.3) 10/08/19 02:34 Total Bilirubin 0.5 mg/dL (0.2-1.3) 10/07/19 11:10 AST 24 U/L (14-36) 10/07/19 11:10 ALT 10 U/L (4-34) 10/07/19 11:10 Alkaline Phosphatase 109 U/L (38-126) 10/07/19 11:10 Creatine Kinase 295 U/L (30-135) H 10/07/19 11:10 Troponin I 0.146 ng/mL (0.000-0.034) H* 10/07/19 22:17 NT-Pro-B Natriuret Pep 5220 pg/mL 10/07/19 11:10 Total Protein 6.8 g/dL (6.3-8.2) 10/07/19 11:10 Albumin 4.2 g/dL (3.5-5.0) 10/07/19 11:10 Triglycerides 120 mg/dL (<150) 10/08/19 02:34 Cholesterol 136 mg/dL (<200) 10/08/19 02:34 LDL Cholesterol, Calc 57 mg/dL (0-99) 10/08/19 02:34 HDL Cholesterol 55 mg/dL (40-60) 10/08/19 02:34 Procalcitonin 0.16 ng/mL (0.02-0.09) H 10/07/19 11:10 Influenza Type A RNA Not Detected (Not Detectd) 10/07/19 11:10 Influenza Type B (PCR) Not Detected (Not Detectd) 10/07/19 11:10 PT/INR, D-dimer PT 10.2 sec (9.0-12.0) 10/07/19 11:10 INR 1.0 (<1.2) 10/07/19 11:10 D-Dimer 0.65 mg/L FEU (<0.60) H 10/07/19 11:10 Abnormal lab findings: Abnormal Labs 10/07/19 10/07/19 10/07/19 11:10 11:10 11:10 WBC 18.7 H RBC Hct 47.2 H Neutrophils # 16.8 H APTT D-Dimer 0.65 H Sodium 136 L Potassium Chloride BUN 23 H Creatinine Glucose 131 H Creatine Kinase 295 H Troponin I Procalcitonin 10/07/19 10/07/19 10/07/19 11:10 11:10 15:55 WBC RBC Hct Neutrophils # APTT D-Dimer Sodium Potassium Chloride BUN Creatinine Glucose Creatine Kinase Troponin I 0.287 H* 0.224 H* Procalcitonin 0.16 H 10/07/19 10/07/19 10/08/19 18:15 22:17 02:34 WBC RBC Hct Neutrophils # APTT 39.7 H D-Dimer Sodium 136 L Potassium 3.3 L Chloride 97 L BUN 27 H Creatinine 1.10 H Glucose 122 H Creatine Kinase Troponin I 0.146 H* Procalcitonin 10/08/19 02:34 WBC 15.4 H RBC 5.42 H Hct 47.9 H Neutrophils # 13.6 H APTT D-Dimer Sodium Potassium Chloride BUN Creatinine Glucose Creatine Kinase Troponin I Procalcitonin - Diagnostic Findings Chest x-ray: report reviewed, image reviewed Assessment and Plan Plan: Assessment: #1. Acute hypoxemic respiratory failure possibly related to acute exacerbation of congestive heart failure with unknown systolic function #2. Altered mental status, lethargy, present on admission, related to the above and possibility of oversedation with a combination of chronic pain medications, medical marijuana and anxiolytics #3. Subsegmental atelectasis vs underlying pneumonia, in view of leukocytosis and mildly elevated pro calcitonin of 0.16 #4. Mildly elevated d-dimer, low Well's score of 1.5, low risk for thromboembolic event #5. Chronic pain syndrome, related to chronic low back pain and patient is on a combination of MS Contin and medical marijuana #6. Hypertension #7. Mild acute kidney injury, hypokalemia likely related to diuretic therapy #8. Mild troponin leak, rule out non-ST elevated NV #9. Current smoker, for 42 years, half a pack a day. No history of chronic lung disease Plan: Continue current antibiotic coverage, chest x-ray has been reviewed showing subsegmental atelectasis. No wheezing, diffuse crackles auscultated. Lower extremity Dopplers have been ordered and pending, echocardiogram is pending, patient denies any chest pain, denies any cough or congestion, she appears to be a quite poor historian, she does not remember events leading up to her hospitalization. Provide incentive spirometer. We'll probably have to cut back on Lasix. D-dimer was very modestly elevated and her Well's score is low, carla rosado possibility of thromboembolic event less likely. We will continue to follow and make recommendations based on her clinical course. I performed a history & physical examination of the patient and discussed their management with my nurse practitioner, Юлия Rosa. I reviewed the nurse practitioner's note and agree with the documented findings and plan of care. Lung sounds are positive for bibasilar crackles the lung conti. The findings and the impression was discussed with the patient. I attest to the documentation by the nurse practitioner. Time with Patient: Greater than 30
[2019-10-08] MEDS ORDERED: HEPARIN SODIUM,PORCINE 5,000 UNIT/ML 1 ML VIAL IV PRN (10:37)
--- NOTE | 2019-10-08 11:37 | ECHOF ---
Referral Reason:Rule out heart disease MEASUREMENTS -------- HEIGHT: 165.1 cm WEIGHT: 78.5 kg BP: 168/69 RVIDd: 3.1 cm (< 3.3) IVSd: 1.2 cm (0.6 - 1.1) LVIDd: 3.1 cm (3.9 - 5.3) LVPWd: 1.6 cm (0.6 - 1.1) IVSs: 1.5 cm LVIDs: 1.7 cm LVPWs: 2.0 cm LAESV Index (A-L): 29.30 ml/m Ao Diam: 2.5 cm (2.0 - 3.7) AV Cusp: 1.9 cm (1.5 - 2.6) MV E Jonathan: 0.79 m/s MV DecT: 244 ms MV A Jonathan: 1.18 m/s MV E/A Ratio: 0.67 AR PHT: 347 ms RAP: 5.00 mmHg RVSP: 40.11 mmHg FINDINGS -------- Sinus rhythm. This was a technically adequate study. The left ventricular size is normal. There is moderate concentric left ventricular hypertrophy. O verall left ventricular systolic function is normal with, an EF between 60 - 65 %. The diastolic fi lling pattern is normal for the age of the patient 13.04. The right ventricle is normal in size. LA is midly dilated 29-33ml/m2. The right atrial size is normal. Interatrial and interventricular septum intact. There is [id number] aortic regurgitation. There is no evidence of aortic stenosis. Mild mitral regurgitation is present. [id number] tricuspid regurgitation present. There is mild to moderate pulmonary hypertension. The right ventricular systolic pressure, as measured by Doppler, is 40.11mmHg. There is no pulmonic regurgitation present. The aortic root size is normal. The inferior vena cava is mildly dilated. There is no pericardial effusion. CONCLUSIONS -------- 1. Sinus rhythm. 2. This was a technically adequate study. 3. The left ventricular size is normal. 4. There is moderate concentric left ventricular hypertrophy. 5. Overall left ventricular systolic function is normal with, an EF between 60 - 65 %. 6. The diastolic filling pattern is normal for the age of the patient 13.04 7. The right ventricle is normal in size. 8. LA is midly dilated 29-33ml/m2. 9. The right atrial size is normal. 10. Interatrial and interventricular septum intact. 11. There is [id number] aortic regurgitation. 12. There is no evidence of aortic stenosis. 13. Mild mitral regurgitation is present. 14. [id number] tricuspid regurgitation present. 15. There is mild to moderate pulmonary hypertension. 16. The right ventricular systolic pressure, as measured by Doppler, is 40.11mmHg. 17. There is no pulmonic regurgitation present. 18. The aortic root size is normal. 19. The inferior vena cava is mildly dilated. 20. There is no pericardial effusion. OBSERVER ELECTRICAL PROSPECTING: Juliann Dukes RDCS
--- NOTE | 2019-10-08 11:54 | US ---
EXAMINATION TYPE: US venous doppler duplex LE DATE OF EXAM: 10/08/2019 11:02 AM COMPARISON: NONE CLINICAL HISTORY: elevated d-dimer. SIDE PERFORMED: Bilateral TECHNIQUE: The lower extremity deep venous system is examined utilizing real time linear array sonog cristobal with graded compression, doppler sonography and color-flow sonography. VESSELS IMAGED: Common Femoral Vein Deep Femoral Vein Greater Saphenous Vein * Femoral Vein Popliteal Vein Small Saphenous Vein * Proximal Calf Veins (* superficial vessels) There is normal flow, compressibility, vascular waveforms Right Leg: Negative for DVT Left Leg: Negative for DVT IMPRESSION: No evident deep venous thrombosis at or above the knees.
--- NOTE | 2019-10-08 14:09 | P.CRDCN ---
History of Present Illness Consult date: 10/08/19 Chief complaint: Recurrent syncope History of present illness: This is a pleasant 69 year old female patient who was somewhat poor historian with a past medical history significant for hypertension as well as dyslipidemia was brought to the hospital by ambulance because she was not feeling well. The history was taken from the patient as well as her who was bit side. For the last 3-4 days, according to her the patient has been experiencing intermittent episodes of syncope. The syncope witnessed by her all the time. The syncope was not associated with any dizziness or lightheadedness or any chest pain or chest discomfort or shortness of breath. Patient beside that she has been feeling very weak and tired. Because of that she was brought to the emergency department. The initial workup him in to be positive for d-dimer and because of that the patient was restarted on heparin. More importantly also the troponin came in to be slightly abnormal. The patient does have abnormal creatinine and her GFR is abnormal as well. The EKG showed sinus rhythm with sinus tachycardia without any significant ST or T-wave abnormalities. The patient was slightly hypoxic when she presented to the emergency room was 70% room air. Her hemoglobin was about 15. The sodium was 136, the GFR was 58, and the troponin was slightly elevated and the BNP was 5000. The chest x-ray did not show any acute abnormalities. Currently the patient is on Lasix by mouth. We consulted to see her for further evaluation off heart failure as well as abnormal troponin. Clinically the patient doesn't seems to be in any overt congestive heart failure. She is on heparin at this point for anticoagulation. Past Medical History Past Medical History: Hyperlipidemia, Hypertension Additional Past Medical History / Comment(s): Stage III kidney disease, low potassium r/t diarrhea History of Any Multi-Drug Resistant Organisms: C-DIFF Date of last positivie culture/infection: C-Diff in November 2017 MDRO Source:: stool Past Surgical History: Back Surgery, Hysterectomy, Orthopedic Surgery, Tonsillectomy Additional Past Surgical History / Comment(s): Low back surgery, colonoscopy Past Psychological History: Anxiety Smoking Status: Current every day smoker Past Alcohol Use History: None Reported Past Drug Use History: Marijuana - Past Family History Father Family Medical History: Cancer Additional Family Medical History / Comment(s): from lymphoma Mother Additional Family Medical History / Comment(s): Mother after a fall with head injury recently. Medications and Allergies Home Medications Medication Instructions Recorded Confirmed Type Morphine Sulfate ER [Ms Contin] 60 mg PO Q12HR 11/18/17 10/07/19 History Morphine Sulfate Ir [MSIR] 15 mg PO BID 11/18/17 10/07/19 History clonazePAM [KlonoPIN] 1 mg PO HS 11/18/17 10/07/19 History Furosemide [Lasix] 20 mg PO DAILY PRN 10/07/19 10/07/19 History Metoprolol Succinate [Toprol XL] 50 mg PO DAILY 10/07/19 10/07/19 History Pregabalin [Lyrica] See Taper PO DIRECTED 10/07/19 10/07/19 History Prochlorperazine [Compazine] 10 mg PO TID PRN 10/07/19 10/07/19 History Rosuvastatin [Crestor] 10 mg PO DAILY 10/07/19 10/07/19 History Allergies Allergy/AdvReac Type Severity Reaction Status Date / Time Antifungal - Imidazole AdvReac Rash/Hives Verified 10/07/19 11:56 erythromycin base AdvReac Rash/Hives Verified 10/07/19 11:56 peanut AdvReac Anaphylaxis Verified 10/07/19 11:56 tomato AdvReac Anaphylaxis Verified 10/07/19 11:56 tuna oil AdvReac Rash/Hives Verified 10/07/19 11:56 RASBERRIES AdvReac Anaphylaxis Uncoded 11/18/17 17:07 Physical Exam Vitals: Vital Signs Temp Pulse Pulse Resp BP BP Pulse Ox 10/08/19 12:00 95.7 F L 80 16 135/70 10/08/19 11:48 97.5 F L 86 16 135/70 96 10/08/19 09:36 133/64 10/08/19 09:33 96 10/08/19 09:32 98 99 10/08/19 08:00 99 10/08/19 07:49 97.9 F 97 13 139/67 91 L 10/08/19 04:00 98.0 F 101 H 20 168/69 91 L 10/08/19 00:00 98.0 F 98 20 138/63 90 L 10/07/19 20:07 90 10/07/19 19:53 94 10/07/19 19:46 98.1 F 95 20 138/74 90 L 10/07/19 17:09 101 H 167/77 92 L 10/07/19 15:54 101 H 92 L 10/07/19 15:39 20 98 10/07/19 15:27 98 10/07/19 15:15 101 H 20 10/07/19 15:10 99.3 F 103 H 20 165/80 10/07/19 14:40 101 H 18 170/87 Intake and Output 10/07/19 10/08/19 10/08/19 22:59 06:59 14:59 Intake Total 304.83 92.401 569.989 Output Total 1000 1200 Balance -695.17 -1107.599 569.989 Intake: Intake, IV Titration 64.83 92.401 89.989 Amount Heparin Sod,Pork in 0.45% 64.83 92.401 89.989 NaCl 25,000 unit In 0.45 % NaCl 1 250ml.bag @ 12 UNITS/KG/HR 9.798 mls/hr IV .Q24H [facility] Rx#: [id number] Oral 240 480 Output: Urine 1000 1200 Other: Voiding Method Bedside Commode # Voids 1 1 1 Weight 78.7 kg - Constitutional General appearance: no acute distress - Respiratory Respiratory: bilateral: diminished - Cardiovascular Rhythm: regular Heart sounds: normal: S1, S2 Results 10/08/19 02:34 10/08/19 02:34 Cardiac Enzymes 10/07/19 10/07/19 Range/Units 15:55 22:17 Troponin I 0.224 H* 0.146 H* (0.000-0.034) ng/mL Coagulation 10/07/19 10/08/19 10/08/19 Range/Units 18:15 02:34 09:47 APTT 39.7 H 23.1 27.9 (22.0-30.0) sec Lipids 10/08/19 Range/Units 02:34 Triglycerides 120 (<150) mg/dL Cholesterol 136 (<200) mg/dL HDL Cholesterol 55 (40-60) mg/dL CBC 10/08/19 Range/Units 02:34 WBC 15.4 H (3.8-10.6) k/uL RBC 5.42 H (3.80-5.40) m/uL Hgb 15.2 (11.4-16.0) gm/dL Hct 47.9 H (34.0-46.0) % Plt Count 246 (150-450) k/uL Comprehensive Metabolic Panel 10/08/19 Range/Units 02:34 Sodium 136 L (137-145) mmol/L Potassium 3.3 L (3.5-5.1) mmol/L Chloride 97 L (98-107) mmol/L Carbon Dioxide 28 (22-30) mmol/L BUN 27 H (7-17) mg/dL Creatinine 1.10 H (0.52-1.04) mg/dL Glucose 122 H (74-99) mg/dL Calcium 9.1 (8.4-10.2) mg/dL Current Medications Generic Name Dose Route Start Last Admin Trade Name Freq PRN Reason Stop Dose Admin Albuterol/Ipratropium 3 ml 10/07/19 16:06 10/07/19 19:53 Duoneb 0.5 Mg-3 Mg/3 Ml Soln INHALATION 3 ml RT-Q6H PRN Administration Shortness Of Breath Or Wheezing Aspirin 325 mg 10/08/19 09:00 10/08/19 09:37 Aspirin PO 325 mg DAILY [facility] Administration Atorvastatin Calcium 20 mg 10/08/19 09:00 10/08/19 09:37 Lipitor PO 20 mg DAILY [facility] Administration Doxycycline Monohydrate 100 mg 10/07/19 21:00 10/08/19 09:38 Vibramycin PO 10/12/19 21:01 100 mg BID [facility] Administration Furosemide 40 mg 10/08/19 09:00 10/08/19 09:38 Lasix PO 40 mg DAILY [facility] Administration Heparin Sodium (Porcine) 0 unit 10/08/19 10:37 10/08/19 10:58 Heparin IV 3,940 unit PER PROTOCOL PRN Administration Low PTT Protocol Heparin Sodium/Sodium Chloride 250 mls @ 9.798 mls/hr 10/07/19 13:00 10/08/19 10:27 25,000 unit/ Sodium Chloride IV 20 units/kg/hr .Q24H [facility] 16.329 mls/hr Titration Protocol 12 UNITS/KG/HR Ceftriaxone Sodium 1 gm/ 50 mls @ 100 mls/hr 10/08/19 09:00 10/08/19 09:38 Sodium Chloride IVPB 100 mls/hr Q24HR [facility] Administration Sodium Chloride 1,000 mls @ 75 mls/hr 10/08/19 08:00 10/08/19 08:36 Saline 0.9% IV 75 mls/hr .[id number] [facility] Administration Methylprednisolone Sodium Succinate 40 mg 10/08/19 09:00 10/08/19 09:36 Solu-Medrol IV 40 mg Q12HR [facility] Administration Metoprolol Succinate 50 mg 10/08/19 09:00 10/08/19 09:37 Toprol Xl PO 50 mg DAILY [facility] Administration Miscellaneous Information 1 each 10/08/19 06:45 Potassium Per Protocol MISCELLANE DAILY PRN Per Protocol Protocol Miscellaneous Information 1 each 10/08/19 08:04 Potassium Per Protocol MISCELLANE DAILY PRN Per Protocol Protocol Morphine Sulfate 15 mg 10/07/19 16:07 10/08/19 06:29 Msir PO 15 mg BID PRN Administration Severe Pain Morphine Sulfate 60 mg 10/07/19 21:00 10/08/19 09:37 Ms Contin PO 60 mg Q12HR [facility] Administration Nicotine 1 patch 10/07/19 16:15 10/08/19 09:38 Habitrol 14mg/24hr Patch TRANSDERM 1 patch DAILY [facility] Administration Nitroglycerin 0.4 mg 10/07/19 12:51 Nitrostat SUBLINGUAL Q5M PRN Chest Pain Pregabalin 50 mg 10/07/19 16:07 Lyrica PO BID PRN NERVE Pain Prochlorperazine Maleate 10 mg 10/07/19 16:07 Compazine PO TID PRN Nausea Intake and Output 10/07/19 10/08/19 10/08/19 22:59 06:59 14:59 Intake Total 304.83 92.401 569.989 Output Total 1000 1200 Balance -695.17 -1107.599 569.989 Intake: Intake, IV Titration 64.83 92.401 89.989 Amount Heparin Sod,Pork in 0.45% 64.83 92.401 89.989 NaCl 25,000 unit In 0.45 % NaCl 1 250ml.bag @ 12 UNITS/KG/HR 9.798 mls/hr IV .Q24H [facility] Rx#: [id number] Oral 240 480 Output: Urine 1000 1200 Other: Voiding Method Bedside Commode # Voids 1 1 1 Weight 78.7 kg 10/08/19 02:34 10/08/19 02:34 Assessment and Plan Assessment: Assessment #1 acute hypoxic respiratory failure which has been improved #2 abnormal d-dimer with possible PE #3 mildly abnormal troponin which could be secondary to PE but obstructive CAD to be ruled out #4 mildly abnormal kidney function #5 recurrent syncope #6 multiple comorbid conditions Plan #1 continue heparin for anticoagulation at this point #2 further clarification regarding the PE. I would advise the patient to have a VQ scan. #3 if there is no evidence of PE by a VQ scan, I would consider doing coronary angiogram to rule out any severe CAD giving her presentation was recurrent syncope as well as abnormal troponin. #4 she underwent an echo which revealed mildly abnormal LV function is mild valvular abnormalities #5 continue aspirin as well as a statin at this point #6 continue oral diuretics Thank you for allowing us participate in her care and we'll continue following up with her
--- NOTE | 2019-10-08 14:55 | CT ---
EXAMINATION TYPE: CT brain wo con DATE OF EXAM: 10/08/2019 COMPARISON: None HISTORY: 69-year-old female confusion, Altered mental status. TECHNIQUE: Examination was done in axial plane without intravenous contrast. Coronal and sagittal r econstructions performed. CT DLP: 1098.4 mGycm Automated exposure control for dose reduction was used. FINDINGS: There is no evidence of acute intracranial hemorrhage, acute ischemic changes, mass, mass-effect, or extra-axial fluid collection. There is no effacement of cerebral sulci or basal subarachnoid cister ns. There is no hydrocephalus. There is no midline shift. Fall-white matter distinction is preserv ed. Mild to moderate patchy periventricular white matter hypodensities. Partially empty sella. Focal nodu le anterior right suprasellar region measuring 7 mm on sagittal series image 34. Lobulated mucosal thickening posterior right maxillary sinus and some irregular mucoid debris within the right frontal sinus. Mastoid air cells well pneumatized. Rightward nasal septal deviation. Orbits and globes are intact. IMPRESSION: 1. Findings highly suspicious for a 7 mm anterior communicating artery intracranial aneurysm. Further MRA evaluation recommended. If confirmed, appropriate follow-up/management will be needed. 2. Mild to moderate patchy changes of chronic small vessel ischemic disease. No acute intracranial ab normality seen.
--- NOTE | 2019-10-08 15:09 | CT ---
EXAMINATION TYPE: CT angio chest DATE OF EXAM: 10/08/2019 COMPARISON: None HISTORY: 69-year-old female shortness of breath Elevated d-dimer. TECHNIQUE: Contiguous axial scanning of the chest performed with IV Contrast, patient injected with 1 00 mL of Isovue 370. Coronal/sagittal MIP reconstructions performed. CT DLP: 312 mGycm Automated exposure control for dose reduction was used. FINDINGS: Heart normal size without pericardial effusion. No flattening of the interventricular septum or reflu x of contrast into the hepatic veins. Aorta normal caliber with mild metastatic arch calcifications and bovine configuration to the aortic arch. Satisfactory opacification of the pulmonary arterial system without evidence for pulmonary embo ciarra. No mediastinal or axillary lymphadenopathy. Bilateral hilar lymphadenopathy is present measuring up t o 1.4 cm on the right and 1.2 cm on the left. Moderate to advanced centrilobular emphysema. Mild diffuse bronchial wall thickening There is some nodular groundglass infiltrate at the basilar right middle lobe, axial images 87 throug h 94. Prominent volume loss in the periphery of the lung bases. There 5 mm peripheral right basilar pulmonary nodule on axial image 105. 4 mm left upper lobe pulmonary nodule, axial image 42. 4 mm peripheral left upper lobe pulmonary nodule, axial image 54. 5 mm lingular pulmonary nodule, axial image 61. Visualized upper abdomen is partially visualized nodule within the left adrenal gland measuring at le ast 1.7 cm. This shows indeterminate attenuation but is low density on gross inspection, favored to r epresent a lipid rich adrenal adenoma. Bones: Mild degenerative disc disease midthoracic spine. No osseous destructive process. IMPRESSION: 1. NO EVIDENCE FOR PULMONARY EMBOLUS. 2. COPD WITH MODERATE TO ADVANCED EMPHYSEMA. 3. BILATERAL HILAR LYMPHADENOPATHY MEASURING UP TO 1.4 CM. FINDINGS COULD BE REACTIVE/POST INFLAMMATO RY. SYSTEMIC FUNGAL/MYCOBACTERIAL INFECTION INFECTION AND SARCOIDOSIS ARE ALSO IN THE DIFFERENTIAL. M ETASTATIC DISEASE/LYMPHOMA ARE CONSIDERED LESS LIKELY. FOLLOW-UP IN 3 MONTHS TO ENSURE STABILITY/RESO LUTION. 4. SCATTERED 5 MM AND SMALLER PULMONARY NODULES CAN ALSO BE REASSESSED AT THE 3 MONTH FOLLOW-UP. 5. 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 1 YEAR FOLLOW-UP CAN CONFIRM STABILITY.
[2019-10-08] MEDS: HEPARIN SOD,PORK IN 0.45% NACL 25,000 UNIT in 0.45% NACL 1 250ML.BAG IV SCH (16:51)
[2019-10-08 18:43] LABS: Potassium 4.4 mmol/L (3.5-5.1)
[2019-10-08] MEDS: methylPREDNISolone SOD SUCCI 125 MG/2 ML VIAL IV SCH (19:31)
[2019-10-08] MEDS ORDERED: hydrALAZINE HCL 20 MG/ML 1 ML VIAL IVP PRN (19:43)
[2019-10-08 20:09] LABS: T4, Free (Free Thyroxine) 1.22 ng/dL (0.78-2.19)
[2019-10-08 20:21] LABS: Glucose,Whole Blood 126 mg/dL (75-99)
[2019-10-08] MEDS: INSULIN ASPART (NovoLOG) 100 UNIT/ML VIAL SQ SCH (20:37)
[2019-10-09 02:41] LABS: Hemoglobin A1C 5.7 % (4.0-6.0)
[2019-10-09 04:30] VITALS: TEMP 98.2
[2019-10-09 06:16] LABS: Glucose,Whole Blood 111 mg/dL (75-99)
[2019-10-09] MEDS: INSULIN ASPART (NovoLOG) 100 UNIT/ML VIAL SQ SCH ×4 (06:18→20:11)
[2019-10-09 06:35] LABS: Basophils % (A) 0 %; Eosinophils % (A) 0 %; HCT 44.2 % (34.0-46.0); HGB 14.4 gm/dL (11.4-16.0); Lymphocytes # (A) 1.4 k/uL (1.0-4.8); Lymphocytes % (A) 10 %; MCH 28.5 pg (25.0-35.0); MCHC 32.6 g/dL (31.0-37.0); MCV 87.5 fL (80.0-100.0); Mean Platelet Volume 8.5; Monocytes # (A) 0.5 k/uL (0-1.0); Monocytes % (A) 4 %; Neutrophils # (A) 12.1 k/uL (1.3-7.7); Neutrophils % (A) 86 %; Platelet Count 243 k/uL (150-450); RBC 5.05 m/uL (3.80-5.40); RDW 13.1 % (11.5-15.5); WBC 14.1 k/uL (3.8-10.6)
[2019-10-09] MEDS: SODIUM CHLORIDE 0.9% 1,000 ML IV SCH ×2 (06:41→20:43)
[2019-10-09 06:59] LABS: Calcium 8.9 mg/dL (8.4-10.2); Magnesium 2.2 mg/dL (1.6-2.3); Potassium 4.3 mmol/L (3.5-5.1)
--- NOTE | 2019-10-09 07:27 | XR ---
EXAMINATION TYPE: XR chest 1V portable DATE OF EXAM: 10/09/2019 HISTORY: dyspnea. REFERENCE: Previous study dated 10/08/2019. FINDINGS: There continues be left basilar airspace disease. There is a small left effusion. Heart siz e is upper limits of normal. IMPRESSION: NO SIGNIFICANT INTERVAL CHANGE IN THE APPEARANCE OF THE CHEST.
[2019-10-09] MEDS: MORPHINE SULFATE ER 60 MG TABLET PO SCH ×2 (08:04→21:25)
[2019-10-09] MEDS: DOXYCYCLINE 100 MG CAP PO SCH ×2 (08:05→21:25)
[2019-10-09] MEDS: NICOTINE 14MG/24HR PATCH TRANSDERM SCH (08:05)
[2019-10-09] MEDS: ASPIRIN 325 MG TAB PO SCH (08:05)
[2019-10-09] MEDS: ATORVASTATIN 20 MG TAB PO SCH (08:06)
[2019-10-09] MEDS: FUROSEMIDE 40 MG TAB PO SCH (08:06)
[2019-10-09] MEDS: methylPREDNISolone SOD SUCCI 40 MG/ML 1 ML VIAL IV SCH ×2 (08:06→21:25)
[2019-10-09] MEDS: METOPROLOL SUCCINATE (ER) 50 MG TAB.ER.24H PO SCH (08:06)
--- NOTE | 2019-10-09 09:32 | P.PN ---
Subjective Progress Note Date: 10/09/19 The patient was interviewed and examined resting comfortably in bed. She states she had been not feeling well since last weekend, experiencing vague symptoms. She states she had had an increase in fatigue, nausea, dizziness, and shortness of breath with minimal exertion. According to her per initial consult note, she also had been experiencing intermittent episodes of syncope. This morning she states she is overall feeling okay. She does continue to have some fatigue, however denies any chest pain, chest pressure, dyspnea, palpitations, dizziness, or vertigo. CT of the chest negative for acute PE, however she is noted to have moderate to advanced emphysema, bilateral Pa lymphadenopathy, and scattered pulmonary nodules. Echocardiogram shows normal LV function with moderate concentric hypertrophy, mild to moderate AR, mild MR, mild to moderate TR, and mild to moderate pulmonary hypertension. GENERAL: Well-appearing, well-nourished and in no acute distress. NECK: Supple without JVD or thyromegaly. LUNGS: Breath sounds clear to auscultation bilaterally. Respiration equal and unlabored. No wheezes, rales or rhonchi. HEART: Regular rate and rhythm without murmurs, rubs or gallops. S1 and S2 heard. EXTREMITIES: Normal range of motion, no edema. No clubbing or cyanosis. Peripheral pulses intact and strong. Vital signs: Systolic pressures overnight range from the 130s to 150s. Heart rates in the 60s to 70s. Maintaining saturations greater than 93% on 3 L nasal cannula. Laboratory data: WBC 14.1, hemoglobin 14.4, hematocrit 44.2, platelet 243, so dium 136, potassium 4.3, BUN 34, creatinine 0.97, hemoglobin A1c 5.7 Impression: #1 NSTEMI, mildly abnormal troponins #2 recurrent syncope, concern for left main and for triple-vessel disease #3 abnormal d-dimer, PE ruled out #4 hypertension #5 hyperlipidemia Plan: Continue current medication regimen. Patient will br kept nothing by mouth after midnight and undergo left heart cath tomorrow with Dr. Claudio. Objective - Vital Signs Vital signs: Vital Signs Temp 98.2 F 10/09/19 04:00 Pulse 74 10/09/19 08:00 Resp 16 10/09/19 08:00 BP 154/69 10/09/19 08:00 Pulse Ox 96 10/09/19 08:00 Intake & Output 10/08/19 10/09/19 10/09/19 18:59 06:59 18:59 Intake Total 1720.566 96.504 Output Total 400 Balance 1720.566 -303.496 Weight 79.8 kg Intake: IV 778 Heparin Sod,Pork in 0.45% 128 NaCl 25,000 unit In 0.45 % NaCl 1 250ml.bag @ 12 UNITS/KG/HR 9.798 mls/hr IV .Q24H [facility] Rx#: [id number] Sodium Chloride 0.9% 1, 600 000 ml @ 75 mls/hr IV . [id number] [facility] Rx#:[id number] cefTRIAXone 1 gm In 50 Sodium Chloride 0.9% 50 ml @ 100 mls/hr IVPB Q24HR [facility] Rx#:[id number] Intake, IV Titration 102.566 96.504 Amount Heparin Sod,Pork in 0.45% 102.566 96.504 NaCl 25,000 unit In 0.45 % NaCl 1 250ml.bag @ 12 UNITS/KG/HR 9.798 mls/hr IV .Q24H [facility] Rx#: [id number] Oral 840 Output: Urine 400 Other: Voiding Method Bedside Commode Toilet # Voids 1 1 # Bowel Movements 1 - Labs CBC & Chem 7: 10/09/19 05:59 10/09/19 05:59 Labs: Abnormal Lab Results - Last 24 Hours (Table) 10/08/19 10/08/19 10/08/19 Range/Units 16:20 16:20 20:19 WBC (3.8-10.6) k/uL Neutrophils # (1.3-7.7) k/uL APTT 93.0 H (22.0-30.0) sec Sodium (137-145) mmol/L BUN (7-17) mg/dL Glucose (74-99) mg/dL POC Glucose (mg/dL) 126 H (75-99) mg/dL TSH 0.236 L (0.465-4.680) mIU/L 10/08/19 10/09/19 10/09/19 Range/Units 23:19 05:59 05:59 WBC 14.1 H (3.8-10.6) k/uL Neutrophils # 12.1 H (1.3-7.7) k/uL APTT 95.2 H (22.0-30.0) sec Sodium 136 L (137-145) mmol/L BUN 34 H (7-17) mg/dL Glucose 112 H (74-99) mg/dL POC Glucose (mg/dL) (75-99) mg/dL TSH (0.465-4.680) mIU/L 10/09/19 10/09/19 Range/Units 05:59 06:14 WBC (3.8-10.6) k/uL Neutrophils # (1.3-7.7) k/uL APTT 57.6 H (22.0-30.0) sec Sodium (137-145) mmol/L BUN (7-17) mg/dL Glucose (74-99) mg/dL POC Glucose (mg/dL) 111 H (75-99) mg/dL TSH (0.465-4.680) mIU/L Microbiology - Last 24 Hours (Table) 10/07/19 11:10 Blood Culture - Preliminary Blood No Growth after 24 hours
[2019-10-09 12:11] LABS: Glucose,Whole Blood 117 mg/dL (75-99)
--- NOTE | 2019-10-09 13:22 | P.PN ---
Subjective Progress Note Date: 10/09/19 Principal diagnosis: Altered mental status, shortness of breath, hypoxemia 69-year-old white female patient of Dr. Alo Robins, with past medical history of hypertension, hyperlipidemia, anxiety, chronic back pain, who was brought into the hospital on O2 2019 by ambulance for evaluation of weakness, not feeling well. She states she does not recall much about the events of yesterday, she states she woke up yesterday in the morning not feeling well, she denies being short of breath, although her chart states that patient was having symptoms of paroxysmal nocturnal dyspnea, waking up feeling short of breath and gasping for air in the middle of the night, bilateral leg swelling over the last 3 days. She denied any fever or chills, denied any chest pain, denied any c ough, no congestion. Denied any nausea vomiting or diarrhea, no urinary complaints. No loss of appetite. Patient is a nonsmoker, for 42 years half a pack a day and she uses medical marijuana for chronic low back pain. Chest x- ray showed subsegmental atelectasis. Admission vital signs showed a low-grade fever with a temp of 99.1, heart rate 101, in sinus mechanism, blood pressure is 160/90, patient was hypoxemic with a pulse ox in the 70s on room air. White blood cell count was 18.7, hemoglobin is 15.3, d-dimer was modestly elevated at 0.65, sodium of 136, creatinine is 1, GFR is 58, patient had a troponin leak of 0.287, 0.224, and 0.146, proBNP was elevated at 5220. On admission to the unit patient was lethargic, she is more awake and alert on today's exam, although she is a poor historian, she cannot recall some of the events that happened yesterday. Calcitonin came back very modestly elevated at 0.16, a has been afebrile, she was empirically placed on a combination of Rocephin and doxycycline, no wheezing noted on today's exam, no coughing, lung sounds reveal scattered crackles at bilateral bases. This morning she is on 6 L per high flow nasal cannula her pulse ox is 96-99%. The patient is seen today 10/09/2019 in follow-up on the selective care unit. She is currently resting comfortably in bed. Awake and alert in no acute distress. Her breathing is a bit better today compared to yesterday. Not quite back to her baseline. She is down to 2 L/m per nasal cannula and maintaining O2 saturation in the 90s. Blood culture reveals no growth to date. White count 1 4.1. Hemoglobin 14.4. Sodium 136. Potassium 4.3. Creatinine 0.97. She is continued on DuoNeb inhalations, IV Solu-Medrol, antibiotics in the form of ceftriaxone and Vibramycin. She remains on heparin drip. Oral diuretics. NicoDerm patch in place. Objective - Vital Signs Vital signs: Vital Signs Temp 98.2 F 10/09/19 04:00 Pulse 57 L 10/09/19 12:00 Resp 16 10/09/19 12:00 BP 163/77 10/09/19 12:00 Pulse Ox 93 L 10/09/19 12:00 Intake & Output 10/08/19 10/09/19 10/09/19 18:59 06:59 18:59 Intake Total 1720.566 96.504 200 Output Total 400 Balance 1720.566 -303.496 200 Weight 79.8 kg Intake: IV 778 Heparin Sod,Pork in 0.45% 128 NaCl 25,000 unit In 0.45 % NaCl 1 250ml.bag @ 12 UNITS/KG/HR 9.798 mls/hr IV .Q24H [facility] Rx#: [id number] Sodium Chloride 0.9% 1, 600 000 ml @ 75 mls/hr IV . [id number] [facility] Rx#:[id number] cefTRIAXone 1 gm In 50 Sodium Chloride 0.9% 50 ml @ 100 mls/hr IVPB Q24HR [facility] Rx#:[id number] Intake, IV Titration 102.566 96.504 Amount Heparin Sod,Pork in 0.45% 102.566 96.504 NaCl 25,000 unit In 0.45 % NaCl 1 250ml.bag @ 12 UNITS/KG/HR 9.798 mls/hr IV .Q24H [facility] Rx#: [id number] Oral 840 200 Output: Urine 400 Other: Voiding Method Bedside Commode Toilet Toilet # Voids 1 1 1 # Bowel Movements 1 - Exam GENERAL EXAM: Alert, very pleasant, 69-year-old female patient who is somewhat of a poor historian on 2 L per nasal cannula with a pulse ox of 93% HEAD: Normocephalic/atraumatic. EYES: Normal reaction of pupils, equal size. Conjunctiva pink, sclera white. NOSE: Clear with pink turbinates. THROAT: No erythema or exudates. NECK: No masses, no JVD, no thyroid enlargement, no adenopathy. CHEST: No chest wall deformity. Symmetrical expansion. LUNGS: Equal air entry with coarse bibasilar crackles, no wheeze, rhonchi or dullness. CVS: Regular rate and rhythm, normal S1 and S2, no gallops, no murmurs, no rubs ABDOMEN: Soft, nontender. No hepatosplenomegaly, normal bowel sounds, no guarding or rigidity. EXTREMITIES: No clubbing, no edema, no cyanosis, 2+ pulses and upper and lower extremities. MUSCULOSKELETAL: Muscle strength and tone normal. SPINE: No scoliosis or deformity SKIN: No rashes CENTRAL NERVOUS SYSTEM: No focal deficits, tone is normal in all 4 extremities. PSYCHIATRIC: Alert and oriented -3. Appropriate affect. Intact judgment and insight. - Labs CBC & Chem 7: 10/09/19 05:59 10/09/19 05:59 Labs: Abnormal Lab Results - Last 24 Hours (Table) 10/08/19 10/08/19 10/08/19 Range/Units 16:20 16:20 20:19 WBC (3.8-10.6) k/uL Neutrophils # (1.3-7.7) k/uL APTT 93.0 H (22.0-30.0) sec Sodium (137-145) mmol/L BUN (7-17) mg/dL Glucose (74-99) mg/dL POC Glucose (mg/dL) 126 H (75-99) mg/dL TSH 0.236 L (0.465-4.680) mIU/L 10/08/19 10/09/19 10/09/19 Range/Units 23:19 05:59 05:59 WBC 14.1 H (3.8-10.6) k/uL Neutrophils # 12.1 H (1.3-7.7) k/uL APTT 95.2 H (22.0-30.0) sec Sodium 136 L (137-145) mmol/L BUN 34 H (7-17) mg/dL Glucose 112 H (74-99) mg/dL POC Glucose (mg/dL) (75-99) mg/dL TSH (0.465-4.680) mIU/L 10/09/19 10/09/19 10/09/19 Range/Units 05:59 06:14 12:10 WBC (3.8-10.6) k/uL Neutrophils # (1.3-7.7) k/uL APTT 57.6 H (22.0-30.0) sec Sodium (137-145) mmol/L BUN (7-17) mg/dL Glucose (74-99) mg/dL POC Glucose (mg/dL) 111 H 117 H (75-99) mg/dL TSH (0.465-4.680) mIU/L Microbiology - Last 24 Hours (Table) 10/07/19 11:10 Blood Culture - Preliminary Blood No Growth after 24 hours Assessment and Plan Assessment: #1. Acute hypoxemic respiratory failure possibly related to acute exacerbation of diastolic congestive heart failure, preserved left ventricular systolic function with ejection fraction 66 5%. #2. Non-ST elevated OK, plan is for cardiac catheterization on 10/10/2019 #3. Altered mental status, lethargy, present on admission, related to the above and possibility of oversedation with a combination of chronic pain medications, medical marijuana and anxiolytics, improved #4. Subsegmental atelectasis vs underlying pneumonia, in view of leukocytosis and mildly elevated pro calcitonin of 0.16, computed tomography scan revealed bilateral hilar lymphadenopathy measuring up to 1.4 cm. #5. Mildly elevated d-dimer, pulmonary embolism ruled out per CTA #6. Chronic pain syndrome, related to chronic low back pain and patient is on a combination of MS Contin and medical marijuana #7. Hypertension #8. Mild acute kidney injury, hypokalemia likely related to diuretic therapy, recovered #9. Current smoker, for 42 years, half a pack a day. 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 Plan: The patient was seen and evaluated by Dr. Ceja. CT angiogram ruled out pulmonary embolus. There is COPD with moderate to advanced emphysema. There is bilateral hilar lymphadenopathy measuring up to 1.4 cm which could be reactive versus infection versus sarcoidosis versus malignancy. Follow-up computed tomography scan in 3 months recommended. The plan is for cardiac catheterization in the a.m. with Dr. Claudio. We'll continue with the current treatment plan. She is again educated regarding the importance of complete smoking cessation. NicoDerm patch in place. We will continue to follow and make further recommendations based on her clinical status. I, the cosigning physician, performed a history & physical examination of the patient. Lungs sounds with crackles in the bilateral posterior bases. Maintaining good O2 saturations in the 90s on 2 L/m per nasal cannula. I discussed the assessment and plan of care with my nurse practitioner, Cass Herrera. I attest to the above note as dictated by her.
--- NOTE | 2019-10-09 13:24 | P.PN ---
Subjective This is a pleasant 69 years old female with past medical history of chronic kidney disease stage III, hypertension, hyperlipidemia, history of C. diff and hysterectomy, anxiety. Presents because of feeling week for two days duration , with coughing and white phlegm , she reports feeling gasping for air with waking in the middle of night , she could not sleep last night because of this suspicious for paroxysmal nocturnal dyspnea , pt noticed bilateral leg swelling over the last three days she denies chest pain , no dizziness, no urinary complaint , she did not have bowel movement for three days, but she has good appetite, she smokes about 1/2 PPD , no alcohol , she uses marijuana and has medical card for her chronic low back pain On admission vitals showed temperature 99.1, heart rate is 101, down to 92-93, blood pressure 168/90, oxygen saturation is 70% on room air. Left showing doubly BC of 18.7, hemoglobin at 15.3, d-dimer is elevated at 0.65, sodium 136, creatinine 1.0, GFR 58, her troponin is elevated at 0.28, creatine kinase to 95, lactic acid is 1.4, magnesium is normal at 2.0, liver enzymes not elevated, if one set is negative. Chest x-ray: Atelectasis versus pneumonia EKG showing sinus tachycardia at 101, QTC 448, no significant ST-T changes. The emergency room she has received Rocephin, 1 time dose of Lasix, solid material 125 mg and given 1 L of normal saline a started at 100 mL per hour. ProBNP is elevated at 5220. MAPs is checked and she is on morphoine ER and IR, lyrica and clonazepam 10/08/19 Patient fully awake and oriented, no chest pain, no coughing, states that her breathing is easy and down however is still kind of heavy. No other complaints. She still have mild pitting leg edema. She is saturating 91% on 6 L of oxygen via nasal cannula. Mildly tachycardic at 97, afebrile, blood pressure 139/67. WBC is coming down to 15.4, pro calcitonin is elevated at 0.16, creatinine is 1.1, low potassium and sodium mildly at 3.3 and 136 respectively. Replace electrolytes. Start the patient on normal saline at 75 mL/h, continue with ceftriaxone and doxycycline. Continue with steroids, continue with heparin drip. Continue with aspirin 10/09/2019 Patient is awake and alert today, no headache, no weakness no dizziness or syncope, no numbness or blurred vision, no slurred speech. No chest pain or dyspnea. Patient has some memory problems but she can hold a logic conversation. Vitals are stable, she is saturating 93% on 2 L, afebrile. WBC is coming down to 14.1 K, remains on heparin drip, sodium 136, creatinine is down to 0.9, glucose is controlled. Chest x-ray: No change. CTA of the chest no pulmonary embolism however there is bilateral hilar lymphadenopathy with multiple pu lmonary nodules, brain CT showing possible 7 mm anterior communicating artery aneurysm with recommendation for MRI of the brain. Pulmonary cardiology R following the case with the plan for cardiac cath has certain point. Echo showed ejection fraction of 60-65% patient has history of chronic back pain status post limited To me by 25 years ago and that She have MRI with no problem Patient denies pacemaker, mental and her body and she is claustrophobic, we are going to order MRI of the brain Objective - Vital Signs Vital signs: Vital Signs Temp 98.2 F 10/09/19 04:00 Pulse 57 L 10/09/19 12:00 Resp 16 10/09/19 12:00 BP 163/77 10/09/19 12:00 Pulse Ox 93 L 10/09/19 12:00 Intake & Output 10/08/19 10/09/19 10/09/19 18:59 06:59 18:59 Intake Total 1720.566 96.504 200 Output Total 400 Balance 1720.566 -303.496 200 Weight 79.8 kg Intake: IV 778 Heparin Sod,Pork in 0.45% 128 NaCl 25,000 unit In 0.45 % NaCl 1 250ml.bag @ 12 UNITS/KG/HR 9.798 mls/hr IV .Q24H [facility] Rx#: [id number] Sodium Chloride 0.9% 1, 600 000 ml @ 75 mls/hr IV . [id number] [facility] Rx#:[id number] cefTRIAXone 1 gm In 50 Sodium Chloride 0.9% 50 ml @ 100 mls/hr IVPB Q24HR [facility] Rx#:[id number] Intake, IV Titration 102.566 96.504 Amount Heparin Sod,Pork in 0.45% 102.566 96.504 NaCl 25,000 unit In 0.45 % NaCl 1 250ml.bag @ 12 UNITS/KG/HR 9.798 mls/hr IV .Q24H [facility] Rx#: [id number] Oral 840 200 Output: Urine 400 Other: Voiding Method Bedside Commode Toilet Toilet # Voids 1 1 1 # Bowel Movements 1 - Exam GENERAL: The patient is alert and oriented x3, not in any acute distress. Well developed, well nourished. HEENT: Pupils are round and equally reacting to light. EOMI. No scleral icterus. No conjunctival pallor. Normocephalic, atraumatic. No pharyngeal erythema. No thyromegaly. CARDIOVASCULAR: S1 and S2 present. No murmurs, rubs, or gallops. -PULMONARY: Chest is clear to auscultation, no wheezing s. Left basal crepitation ABDOMEN: Soft, nontender, nondistended, normoactive bowel sounds. No palpable organomegaly. MUSCULOSKELETAL: No joint swelling or deformity. -EXTREMITIES: No cyanosis, clubbing,. 1+ bilateral pitting leg edema NEUROLOGICAL: Gross neurological examination did not reveal any focal deficits. SKIN: No rashes. No petechiae - Labs CBC & Chem 7: 10/09/19 05:59 10/09/19 05:59 Labs: Abnormal Lab Results - Last 24 Hours (Table) 10/08/19 10/08/19 10/08/19 Range/Units 16:20 16:20 20:19 WBC (3.8-10.6) k/uL Neutrophils # (1.3-7.7) k/uL APTT 93.0 H (22.0-30.0) sec Sodium (137-145) mmol/L BUN (7-17) mg/dL Glucose (74-99) mg/dL POC Glucose (mg/dL) 126 H (75-99) mg/dL TSH 0.236 L (0.465-4.680) mIU/L 10/08/19 10/09/19 10/09/19 Range/Units 23:19 05:59 05:59 WBC 14.1 H (3.8-10.6) k/uL Neutrophils # 12.1 H (1.3-7.7) k/uL APTT 95.2 H (22.0-30.0) sec Sodium 136 L (137-145) mmol/L BUN 34 H (7-17) mg/dL Glucose 112 H (74-99) mg/dL POC Glucose (mg/dL) (75-99) mg/dL TSH (0.465-4.680) mIU/L 10/09/19 10/09/19 10/09/19 Range/Units 05:59 06:14 12:10 WBC (3.8-10.6) k/uL Neutrophils # (1.3-7.7) k/uL APTT 57.6 H (22.0-30.0) sec Sodium (137-145) mmol/L BUN (7-17) mg/dL Glucose (74-99) mg/dL POC Glucose (mg/dL) 111 H 117 H (75-99) mg/dL TSH (0.465-4.680) mIU/L Microbiology - Last 24 Hours (Table) 10/07/19 11:10 Blood Culture - Preliminary Blood No Growth after 24 hours Assessment and Plan Assessment: Elevated troponin, rule out cardiac causes and non-stemi Acute hypoxic respiratory failure Acute diastolic heart failure with ejection fraction 60-65% bilateral hilar lymphadenopathy with multiple pulmonary nodules, brain CT showing possible 7 mm anterior communicating artery aneurysm , rule out aneurysm with MRI could has elements of chronic obstructive pulmonary dis nicotine dependence Elevated d-dimer Possible community-acquired pneumonia. Chest x-ray atelectasis versus pneumonia which cannot be excluded.high wbc Hypertension Hyperlipidemia Chronic kidney disease stage III History of C. diff Status post hysterectomy Anxiety not an active issue Plan: This is a pleasant 69 years old female, comes with possible NSTEM, CHF and possible COPD, continue with normal saline continue with heparin drip , cardiology and pulmonary consults, start steroid, bronchodilator, oxygen therapy as needed, we will order an MRA of the brain, c/w aspirin. Hold clonazepam for pt is sleepy,and continue with ceftiraxone Labs and medication were reviewed.. Continue same treatment. Continue with symptomatic treatment. Resume home medication. Monitor lytes and vitals. DVT and GI prophylaxis. Further recommendations of the clinical course of the patient DVT prophylaxis: heparin GI Prophylaxis: Pepcid PT/OT: Pending Prognosis is guarded
[2019-10-09 13:46] VITALS: BMI 29.2
--- NOTE | 2019-10-09 14:29 | MR ---
EXAMINATION TYPE: MR angio head wo con DATE OF EXAM: 10/09/2019 COMPARISON: CT brain 10/08/2019 HISTORY: R/O Brain aneurysm CONTRAST: None TECHNIQUE: Multiplanar multiecho imaging on a 3.0 Hilary magnet is performed through the [place] [facility]. 3-D [id number] imaging is performed. Source images are reviewed on the computer in the axi al plane. Reconstructed images rotating on the computer are reviewed. FINDINGS: The internal carotid arteries bifurcate normally into A1 and M1 segments. The A2 segments are normal. Middle cerebral artery branches are normal. There is a 0.6 x 0.7 cm aneurysm extending inferiorly from the anterior communicating artery. Anterior communicating artery is patent. The right posterior communicating artery is absent. The left posterior communicating artery is absent. Vertebrobasilar arteries within the zovoh-en-ymph are normal. Posterior cerebral vasculature is norm al. No suspicious aneurysm or aneurysmal dilatation is evident. No obstructions are identified. No significant flow-limiting stenosis is evident. IMPRESSIONS: 1. 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 A Yellow level critical message alert has been initiated for [facility] [employer] via the [employer] on 10/09/2019 2:27 PM. This message alert has been sent to [facility] [employer] via the preferences provided by the clinician for the receipt of Radiology Critical Findings. Message ID [id number].
[2019-10-09] MEDS: HEPARIN SOD,PORK IN 0.45% NACL 25,000 UNIT in 0.45% NACL 1 250ML.BAG IV SCH (16:16)
[2019-10-09] MEDS: MORPHINE SULFATE IR 15 MG TABLET PO PRN (16:20)
[2019-10-09 17:43] LABS: Glucose,Whole Blood 110 mg/dL (75-99)
[2019-10-09] MEDS ORDERED: ALPRAZolam 0.5 MG TAB PO STA (19:59)
[2019-10-09] MEDS ORDERED: LORazepam 2 MG/ML INJ IV STA (20:02)
[2019-10-09 20:11] LABS: Glucose,Whole Blood 114 mg/dL (75-99)
[2019-10-09] MEDS ORDERED: LORazepam 2 MG/ML INJ IV PRN ×2 (22:02→22:10)
[2019-10-09] MEDS ORDERED: amLODIPine 5 MG TAB PO SCH (22:15)
[2019-10-09 22:37] VITALS: RESP 16
[2019-10-09 23:29] VITALS: PULSE 68
[2019-10-09 23:47] VITALS: BP 156/76
--- NOTE | 2019-10-13 10:54 | CDI ---
Documentation Clarification Form Date: 10/13/19 From: Carmen Gonzalez Phone: If you have a question about this query, please contact Landy Lantig[employer] at [phone] between 8am and 5pm. Admit Date: 10/07/19 Discharge Date:10/10/19 Patient Name: Anita Mantilla Visit Number: [id number] ATTENTION: The Clinical Documentation Specialists (CDI) and [facility] Coding Staff appreciate your assistance in clarifying documentation. Please respond to the clarification below the line at the bottom and electronically sign. The CDI & [facility] Coding staff will review the response and follow-up if needed. Please note: Queries are made part of the Legal Health Record. If you have any questions, please contact the author of this message via ITS. Dear Dr. Guerrero The patient presented with: acute hypoxic respiratory failure due to acute diastolic CHF and NSTEMI History/Risk Factors: Hyperlipidemia, CKD 3, hypertension Clinical Indicators: Increased BMI Patient's weight: 56.699 kg Patient's Height: 5 ft, 5 in Patient's BMI 29.2 Skin care/assessment: Warm, dry, intact, normal color Dietary Consult: Documented that patient is overweight Lab: WBC 14.1, Na 136, Glucose 112, POCG 111 Treatment: No treatments documented In order to capture the severity of condition associated with patient BMI of 29.3, a clinical diagnosis needs to be documented by the physician. Please clarify: Overweight Obesity, Class 1 Obesity, Class 2 Extreme(Morbid, severe) obesity Other, please specify Unable to determine NIH Classification for BMI: Overweight BMI 2529.9 Obesity (Class 1) BMI 3034.9 Obesity (Class 2) BMI 3539.9 Extreme (Morbid) (severe) obesity BMI >40 overweight MTDD
== END 2019-10-10 | disposition home or self-care (01) | DRG 280 ==
LOC: EC 10:53 → 3SCARD 12:51
PROVIDERS: ADMIT Internal Medicine; ATTEND Internal Medicine
DX: I21.4 Non-ST elevation (NSTEMI) myocardial infarction (principal); I50.31 Acute diastolic (congestive) heart failure; J18.9 Pneumonia, unspecified organism; J96.01 Acute respiratory failure with hypoxia; I13.0 Hypertensive heart and chronic kidney disease with heart failure and stage 1 through stage 4 chronic kidney disease, or unspecified chronic kidney disease; J98.11 Atelectasis; N17.9 Acute kidney failure, unspecified; I67.1 Cerebral aneurysm, nonruptured; I27.20 Pulmonary hypertension, unspecified; N18.3 Chronic kidney disease, stage 3 (moderate); E78.5 Hyperlipidemia, unspecified; I08.3 Combined rheumatic disorders of mitral, aortic and tricuspid valves; E87.6 Hypokalemia; F17.210 Nicotine dependence, cigarettes, uncomplicated; F40.240 Claustrophobia; G89.4 Chronic pain syndrome; J43.9 Emphysema, unspecified; T50.2X5A Adverse effect of carbonic-anhydrase inhibitors, benzothiadiazides and other diuretics, initial encounter; M54.5 Low back pain; R41.3 Other amnesia; R59.0 Localized enlarged lymph nodes; E66.3 Overweight; Z68.29 Body mass index [BMI] 29.0-29.9, adult; Z79.899 Other long term (current) drug therapy; Z90.710 Acquired absence of both cervix and uterus; Z88.1 Allergy status to other antibiotic agents; Z88.0 Allergy status to penicillin; Z88.8 Allergy status to other drugs, medicaments and biological substances; Z91.018 Allergy to other foods; Z80.8 Family history of malignant neoplasm of other organs or systems
CPT/HCPCS: 36415; 70450; 70544; 71045; 71046; 71275; 80048; 80053; 80061; 82272; 82550; 83036; 83605; 83735; 83880; 84132; 84145; 84439; 84443; 84484; 85025; 85379; 85610; 85730; 87040; 87502; 93005; 93306; 93970; 94640; 94760; 96361; 96365; 96375; 96376; 99291